=== PATIENT | male | born 1970 | race Caucasian/White ===

== ENCOUNTER 2016-12-05 01:08 | Day surgery (SDC) | payer MEDICARE, OTHER ==
[~2016-12-05] VITALS: Ht 177.8 cm; Wt 84.4 kg
[~2016-12-05 01:08] MED LIST: DILT240T10 PO; ERGO2000 PO; HYDR-3939 PO; LISI40TA PO; METO100T3 PO; OMEP20CA11 PO; PRAV40TA PO; RES30 PO; VIT1TABL83 PO; WARF2.5T82 PO; auryxia ORAL
[2016-12-05 14:02] VITALS: BP 117/64; PULSE 56; RESP 16; O2SAT 97
[2016-12-05 14:07] LABS: BASOPHILS % (AUTO) 0.6 % (0-3); EOSINOPHILS % (AUTO) 2.5 % (0-5); MONOCYTES % (AUTO) 14.3 % (4-12); Mean Corpuscular Hemoglobin 29.6 pg (27.0-35.0); Mean Corpuscular Volume 91.4 fL (81-100); NEUTROPHILS % (AUTO) 60.7 % (40-74); Platelet Count 243 bil/L (150-400)
[2016-12-05] MEDS ORDERED: Flumazenil 0.1 mg/mL 5 mL Inj IV ONE (14:12)
[2016-12-05] MEDS ORDERED: Methohexital 10 mg/mL 50 mL Inj ONE (14:12)
[2016-12-05] MEDS ORDERED: Atropine 1 mg/10 mL (Code) Syringe ONE (14:12)
[2016-12-05 14:23] LABS: INR 2.3 ratio
[2016-12-05] MEDS ORDERED: 0.9% Sodium Chloride 1,000 ML IV SCH (14:25)
[2016-12-05 14:37] VITALS: BP 137/84; PULSE 62; RESP 16; O2SAT 97
[2016-12-05 14:44] VITALS: BP 140/81; PULSE 73; RESP 16; O2SAT 97
[2016-12-05 14:49] VITALS: BP 139/79; PULSE 70; RESP 16; O2SAT 98
[2016-12-05 15:00] VITALS: BP 127/76; PULSE 72; RESP 16; O2SAT 99
[2016-12-05 15:09] VITALS: BP 128/85; PULSE 72; RESP 16; O2SAT 99
--- NOTE | 2016-12-05 15:20 | NUR ---
Pt discharged to home, ambulatory, accompanied by spouse. Pt's VSS, in NSR, IV discontinued. Pt given all discharge instructions and had no further questions at time of d/c.
--- NOTE | 2016-12-05 15:59 | PROCED ---
[address] [address] PROCEDURE NOTE PATIENT: JONA ESCALERA : 1970 MR#: [id number] ADMIT: 12/05/2016 JOB ID: [id number] DATE OF SERVICE: 12/05/2016 PREOPERATIVE DIAGNOSIS(ES): Atrial fibrillation. POSTOPERATIVE DIAGNOSIS(ES): Sinus rhythm. PROCEDURE PERFORMED: Direct current cardioversion. SURGEON: Joseph Jin MD. SEDATION: Versed 0.4 mg and multiple boluses of Brevital were utilized for sedation. Please see flow sheet for exact dosage. INDICATION: The patient is a pleasant 46-year-old gentleman with end-stage renal disease, on hemodialysis, who has symptomatic persistent atrial fibrillation. He has been appropriately anticoagulated with warfarin. After discussion of risks and benefits of cardioversion, he opted to proceed. PROCEDURAL DESCRIPTION: Following informed signed consent, the patient was taken to the procedure suite in a fasting state where defibrillator patches were placed in the anterior and posterior positions. After adequate sedation, a 200 joule biphasic synchronized shock was used to convert him to a sinus rhythm. He will be allowed to recover and discharged home for later followup. COMPLICATIONS: None. ESTIMATED BLOOD LOSS: None. IMPRESSION: Successful direct current cardioversion. PLAN: 1. Recovery and discharge from the [facility]. 2. Continue current medication regimen including diltiazem and metoprolol. The patient was intolerant of PROPAFENONE and cannot be on medications. 3. Follow up with me in clinic in 3-4 weeks to discuss ablation. ATTENDING STATEMENT: Joseph Jin MD, electrophysiology attending, was present for and supervised/performed all aspects of this procedure.
== END 2016-12-05 23:59 | disposition home or self-care (01) ==
LOC: SOUO 01:08
PROVIDERS: ATTEND Internal Medicine Cardiovascular Disease
DX: I48.1 Persistent atrial fibrillation (principal)

== ENCOUNTER 2016-12-22 16:24 | Emergency (ER) | payer MEDICARE, OTHER ==
[~2016-12-22] VITALS: Ht 170.2 cm; Wt 83.2 kg
[2016-12-22 16:35] VITALS: BP 124/77; PULSE 75; RESP 16; O2SAT 98
[2016-12-22 18:40] LABS: BASOPHILS % (AUTO) 0.6 % (0-3); EOSINOPHILS % (AUTO) 2.7 % (0-5); MONOCYTES % (AUTO) 13.6 % (4-12); Mean Corpuscular Hemoglobin 29.8 pg (27.0-35.0); Mean Corpuscular Volume 91.6 fL (81-100); Platelet Count 250 bil/L (150-400)
[2016-12-22 18:56] LABS: INR 1.69 ratio
--- NOTE | 2016-12-22 19:26 | ED.REPORT ---
HPI-Extremity Problem Upper Date of Service Dec 22, 2016 ED Provider: Sha Rosenberg History of Present Illness: 46yo male with L arm AV fistula for dialysis. He reports increase in size of anuerysm which occured yesterday. No bleeding. He went to dialysis today and was advised to have fistula site evaluated. He is on warfarin for A. fib. No pain or changes in neuro/circulation in L hand Nursing Notes Stated Complaint: PSEUDO ANEURYSM HAS INCREASED IN SIZE Chief Complaint: General Complaint Nursing Notes Reviewed: Yes Allergies: Coded Allergies: NSAIDS (Non-Steroidal Anti-Inflamma (Verified Allergy, Unknown, 12/22/16) Penicillins (Verified Allergy, Unknown, 12/22/16) Sulfa (Sulfonamide Antibiotics) (Verified Allergy, Unknown, 12/22/16) codeine (Verified Allergy, Unknown, 12/22/16) morphine (Verified Allergy, Unknown, 12/05/16) Scheduled ([auryxia]) 210 MG ORAL TID Diltiazem ER (Diltiazem ER) 240 Mg Tab.er.24h 240 MG PO DAILY Hydralazine (Hydralazine) 25 Mg Tablet 25 MG PO TID Lisinopril (Lisinopril) 40 Mg Tablet 40 MG PO DAILY Metoprolol Tartrate (Metoprolol Tartrate) 100 Mg Tablet 100 MG PO BID Omeprazole (Omeprazole) 20 Mg Capsule.dr 20 MG PO DAILY Pravastatin (Pravastatin) 40 Mg Tablet 40 MG PO DAILY Warfarin Sodium (Warfarin Sodium) 2.5 Mg Tablet 2.5 MG PO DAILY Scheduled PRN Temazepam (Temazepam) 30 Mg Cap 30 MG PO HS PRN PRN For Insomnia Miscellaneous Medications Ergocalciferol (Vitamin D2) (Vitamin D2) 2,000 Unit Tablet 2,000 UNIT PO Vit B Comp/C/FA/Iron/Vit E (Vitamin B Complex Tablet) 1 Each Tablet 1 EACH PO General Time Seen by MD: 17:50 Chief Complaint Other L arm AV fistula increased in size. Hx Obtained From: Patient Arrived By: Walk-in Onset Occurred: Yesterday Symptom Duration: Since onset Location: : Arm left Severity: Current: No pain currently Severity: Maximum: No pain Pertinent Negative: Pt denies other symptoms Pertinent Negative: Exacerbated by nothing Recent Healthcare: Recent doctor visit Similar Sx Previous: No Past Medical History Past Medical History ESRD, on dialysis Atrial Fib Past Surgical History L arm AV fistula 2013 Smoking History Former Smoker Ambulatory Status Independent Review of Systems Constitutional: Denies: Chills, Fever Musculoskeletal: Denies: Extremity pain Skin: Reports Swelling (at L arm AV fistula site) Neurologic: Denies: Numbness, Weakness Complete sys rev & neg: except as marked. Respiratory: Denies: Shortness of breath Cardiovascular: Denies: Chest pain GI: Denies: Abdominal pain Physical Exam Initial Vital Signs Vital Signs (First) Date Time Temp Pulse Resp B/P Pulse Ox O2 Delivery O2 Flow Rate FiO2 12/22/16 16:35 36.7 75 16 124/77 98 Room Air Initial VS: Vital signs normal General/Constitutional: Awake, Alert, No acute distress, Not toxic appearing Respiratory / Chest: Atraumatic, Breath sounds NL, Breath sounds = bilat, No respiratory distress Cardiovascular: Heart rate NL, Regular rhythm, Heart sounds NL A. fib not present, was cardioverted a few weeks ago per his report. Left Elbow: Positive: Swelling present... (Mild), Negative: Ecchymosis present, Erythema present, Neuro deficit present, Pulses distal absent, Pulses distal decreased, Warmth present Good thrill through AV fistula. Interpretation & Diagnostics Interpretation & Diagnostics: US shows interval increase in size of fistula from September, US. No pseudoaneurysm found. Lab Results Interpretation Result Diagram: 12/22/162 12/22/16 180 Test 12/22/16 18:02 White Blood Count 7.0th/mm3 (3.8-10.1) Red Blood Count 4.67mil/mm3 (4.40-5.80) Hemoglobin 13.9g/dL (13.8-17.2) Hematocrit 42.8% (41.0-50.0) Mean Corpuscular Volume 91.6fL (81-100) Mean Corpuscular Hemoglobin 29.8pg (27.0-35.0) Mean Corpuscular Hemoglobin Concent 32.5% (32.0-37.0) Red Cell Distribution Width 16.3% (12.3-15.4) Platelet Count 250bil/L (150-400) Neutrophils (%) (Auto) 60.0% (40-74) Lymphocytes (%) (Auto) 22.7% (14-46) Monocytes (%) (Auto) 13.6% (4-12) Eosinophils (%) (Auto) 2.7% (0-5) Basophils (%) (Auto) 0.6% (0-3) Prothrombin Time 18.3sec (8.1-12.5) Prothromb Time International Ratio 1.69ratio Sodium Level 136mEq/L (134-144) Potassium Level 4.1mEq/L (3.5-5.2) Chloride Level 90mEq/L (97-108) Carbon Dioxide Level 29mmol/L (18-29) Blood Urea Nitrogen 31mg/dL (6-24) Creatinine 4.81mg/dL (0.76-1.27) Estimat Glomerular Filtration Rate 14mL/min (>59) Glucose Level 117mg/dL (60-99) Calcium Level 9.2mg/dL (8.5-10.1) Hold Andrews Top Tube Received (Received) US Soft Tissue/Musculoskeletal PROCEDURE: US DUPLEX DOPPLER OF UNILATERAL ARM ARTERIES, LEFT INDICATIONS: eval L arm fistula for possible pseudoaneurysm formation TECHNIQUE: Color and pulse Doppler interrogation was performed of the left upper extremity arterial systems, with image documentation. Prior brachial uodcys-mb-owjkqfm vein fistula with reported swelling in the area of the arterial and venous fistula. COMPARISON: [facility], US, US DIALYSIS SHUNT DPLX, 10/10/2016, 12:46. FINDINGS: The brachial artery flow velocity is 329 centimeters per second and the fistulous communication to the proximal basilic vein has a neck diameter of 0.6 cm, with flow velocity of 252 cm/s. The basilic vein proximally near the fistula has a maximal diameter of 1.8 x 1.5 cm, and at the middle third has approximately a diameter of 1.4 x 1.3 cm and at the distal third has a diameter of 1.7 x 1.5 cm. This contrasts with the 10/06 ultrasound maximal diameter corresponding measurements of 1.0 cm, 0.9 cm, and 1.1 cm, respectively. No pseudoaneurysm is seen. IMPRESSION: No pseudoaneurysm is seen. Interval increase in caliber of the basilic vein portion of the brachial gfovbw-ou-kcspbrp vein arteriovenous shunt. Dictated by: Isra Diaz M.D. on 12/22/2016 at 20:36 Approved by: Isra Diaz M.D. on 12/22/2016 at 20:47 Re-Eval/Medical Decision Med Decision/Clinical Course Dr. So evaluated Pt. and advised General Surgery Consult. I spoke with Surgeon, , who advised US of fistula, if no alarming findings, he recommends f/u with Dr. Ever Torres next week. Counseled Regarding: Diagnosis, Lab results, Need for follow-up, When/why to return to ED Discharge & Departure Impression: Primary Impression: Complication of arteriovenous dialysis fistula Encounter type: initial encounter Qualified Code: T82.9XXA - Unspecified complication of cardiac and vascular prosthetic device, implant and graft, initial encounter Disposition: Home Additional Instructions: Follow up with Dr. Torres on Sunday, 12/25. Return to ER if anything worsens. Referrals: Dimitri Torres MD 2-3 days eval fistula EDSupervising Provider for APC: Deb So MD Attending Statement I spent [id number] time with this patient and agree with the assessment and disposition. Sha Rosenberg Dec 22, 2016 19:25 Deb So MD Dec 22, 2016 22:22
--- NOTE | 2016-12-22 20:49 | DRSVH ---
PROCEDURE: US DUPLEX DOPPLER OF UNILATERAL ARM ARTERIES, LEFT INDICATIONS: eval L arm fistula for possible pseudoaneurysm formation TECHNIQUE: Color and pulse Doppler interrogation was performed of the left upper extremity arterial systems, wit h image documentation. Prior brachial sojlsh-af-qcldfxk vein fistula with reported swelling in the ar ea of the arterial and venous fistula. COMPARISON: [facility], US, US DIALYSIS SHUNT DPLX, 10/10/2016, 12:46. FINDINGS: The brachial artery flow velocity is 329 centimeters per second and the fistulous communic ation to the proximal basilic vein has a neck diameter of 0.6 cm, with flow velocity of 252 cm/s. Th e basilic vein proximally near the fistula has a maximal diameter of 1.8 x 1.5 cm, and at the middle third has approximately a diameter of 1.4 x 1.3 cm and at the distal third has a diameter of 1.7 x 1. 5 cm. This contrasts with the 10/06 ultrasound maximal diameter corresponding measurements of 1.0 cm, 0.9 cm, and 1.1 cm, respectively. No pseudoaneurysm is seen. IMPRESSION: No pseudoaneurysm is seen. Interval increase in caliber of the basilic vein portion of the brachial tevqcz-yz-nxfhwfu vein arteriovenous shunt. Dictated by: Isra Diaz M.D. on 12/22/2016 at 20:36 Approved by: Isra Diaz M.D. on 12/22/2016 at 20:47
[2016-12-22 21:03] VITALS: BP 128/90; PULSE 81; RESP 16; O2SAT 98
== END 2016-12-22 21:05 | disposition home or self-care (01) ==
LOC: SED 16:24
DX: T82.9XXA Unspecified complication of cardiac and vascular prosthetic device, implant and graft, initial encounter (principal); Y71.2 Prosthetic and other implants, materials and accessory cardiovascular devices associated with adverse incidents; Y92.9 Unspecified place or not applicable; Y93.9 Activity, unspecified; Y99.9 Unspecified external cause status; I12.0 Hypertensive chronic kidney disease with stage 5 chronic kidney disease or end stage renal disease; N18.6 End stage renal disease; I48.91 Unspecified atrial fibrillation; Z99.2 Dependence on renal dialysis; Z87.891 Personal history of nicotine dependence

== ENCOUNTER 2016-12-31 11:10 | Inpatient (IN) | payer MEDICARE, OTHER ==
[2016-12-31] VITALS (8 sets, daily range): BP systolic 111–170; BP diastolic 68–104; PULSE 42–76; RESP 13–20; O2SAT 99–100
[~2016-12-31] VITALS: Ht 177.8 cm; Wt 88.8 kg
[2016-12-31] MEDS ORDERED: Atropine 1 mg/10 mL (Code) Syringe ONE (11:18)
--- NOTE | 2016-12-31 11:27 | ED.REPORT ---
HPI-Syncope Date of Service Dec 31, 2016 ED Provider: Jatin Dejesus MD The pt is 46 y/o male w/ a hx of A-fib and HTN presenting to the ED due to lightheadedness onset 1 hour ago while folding laundry. He also began feeling dizzy, sweaty, nauseas, and numbing in the hands. His reports him "nodding off" while driving. The pt took his metoprolol at 0800 this morning. He recently had a cardioversion from A-fib. Last Sunday he had a CT scan done w/ contrast, had dialysis for 2.5 hours, and Sunday had dialysis for 4 hours. His medications are as follows: Temazapamp 30mg Vitamin D 1.25 mg Hydralazine 25 mg 3x a day Pravastate 40mg Omeprazole 20mg Lisinopril 40mg B complex Metoprolol 100 mg twice a day Wrafarin 5mg Auryxia 220 mg Vitamin E 400 twice a day Diltiazem 240mg 1/day Nursing Notes Stated Complaint: LOW BLOOD PRESSURE,DIZZY Chief Complaint: Lightheadedness Nursing Notes Reviewed: Yes (Tier 1 Performance not reconciled: Warfarin, diltiazem , and metoprolol) Allergies: Coded Allergies: NSAIDS (Non-Steroidal Anti-Inflamma (Verified Allergy, Unknown, 12/22/16) Penicillins (Verified Allergy, Unknown, 12/22/16) Sulfa (Sulfonamide Antibiotics) (Verified Allergy, Unknown, 12/22/16) codeine (Verified Allergy, Unknown, 12/22/16) morphine (Verified Allergy, Unknown, 12/05/16) Scheduled ([auryxia]) 210 MG ORAL TID Diltiazem ER (Diltiazem ER) 240 Mg Tab.er.24h 240 MG PO DAILY Hydralazine (Hydralazine) 25 Mg Tablet 25 MG PO TID Lisinopril (Lisinopril) 40 Mg Tablet 40 MG PO DAILY Metoprolol Tartrate (Metoprolol Tartrate) 100 Mg Tablet 100 MG PO BID Omeprazole (Omeprazole) 20 Mg Capsule.dr 20 MG PO DAILY Pravastatin (Pravastatin) 40 Mg Tablet 40 MG PO DAILY Warfarin Sodium (Warfarin Sodium) 2.5 Mg Tablet 2.5 MG PO DAILY Scheduled PRN Temazepam (Temazepam) 30 Mg Cap 30 MG PO HS PRN PRN For Insomnia Miscellaneous Medications Ergocalciferol (Vitamin D2) (Vitamin D2) 2,000 Unit Tablet 2,000 UNIT PO Vit B Comp/C/FA/Iron/Vit E (Vitamin B Complex Tablet) 1 Each Tablet 1 EACH PO General Time Seen by Provider: 11:54 Chief Complaint Other (Lightheaded) Hx Obtained From: Patient Arrived By: Walk-in Onset Occurred: 1 - 4 hours ago Recent Healthcare: No recent hospitalization, Recent doctor visit Past Medical History Past Medical History Notes: 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 Jin Past Medical History ESRD, on dialysis Atrial Fib (s/p cardioversion x2) Past Surgical History L arm AV fistula 2012 Smoking History Former Smoker Ambulatory Status Independent Review of Systems GI: Reports: Nausea Skin: Reports Diaphoresis Neurologic: Reports: Dizziness, Lightheaded, Numbness (hands ) Complete sys rev & neg: except as marked. Physical Exam Initial Vital Signs Vital Signs (First) Date Time Temp Pulse Resp B/P Pulse Ox O2 Delivery O2 Flow Rate FiO2 12/31/16 11:15 36.3 42 13 111/86 100 Room Air Initial VS: Reviewed, Vital signs abnormal (severe bradycardia) General/Constitutional: Awake, Alert Globally weak Respiratory / Chest: Atraumatic, Breath sounds NL, Breath sounds = bilat, No respiratory distress, No rales, No rhonchi, No wheezing Cardiovascular: Regular rhythm, Heart sounds NL Heart Rate / Rhythm: Positive: Bradycardia (Profoundly ) No edema Lower Extremity / Pelvis / MS: Atraumatic, Full range of motion Neurologic: Oriented X3, Speech NL Mentating normally Head / Eyes: Atraumatic, Normocephalic ENT: Atraumatic, Airway patent Neck: Atraumatic, Supple, Full range of motion Abdomen: Atraumatic, Soft, Non-tender Back: Atraumatic, Full range of motion Skin: Atraumatic, Color NL, No rash, Warm, Dry Upper Extremity / MS: Full range of motion, No deformity Fistula L arm Interpretation & Diagnostics Lab Results Interpretation Result Diagram: 12/31/16 1117 12/31/16 1117 Test 12/31/16 11:17 White Blood Count 11.2th/mm3 (3.8-10.1) Red Blood Count 4.56mil/mm3 (4.40-5.80) Hemoglobin 13.6g/dL (13.8-17.2) Hematocrit 42.8% (41.0-50.0) Mean Corpuscular Volume 93.9fL (81-100) Mean Corpuscular Hemoglobin 29.8pg (27.0-35.0) Mean Corpuscular Hemoglobin Concent 31.8% (32.0-37.0) Red Cell Distribution Width 16.4% (12.3-15.4) Platelet Count 296bil/L (150-400) Neutrophils (%) (Auto) 60.5% (40-74) Lymphocytes (%) (Auto) 23.8% (14-46) Monocytes (%) (Auto) 11.8% (4-12) Eosinophils (%) (Auto) 2.9% (0-5) Basophils (%) (Auto) 0.6% (0-3) Prothrombin Time 15.5sec (8.1-12.5) Prothromb Time International Ratio 1.44ratio Sodium Level 134mEq/L (134-144) Potassium Level 5.8mEq/L (3.5-5.2) Chloride Level 93mEq/L (97-108) Carbon Dioxide Level 22mmol/L (18-29) Blood Urea Nitrogen 58mg/dL (6-24) Creatinine 8.25mg/dL (0.76-1.27) Estimat Glomerular Filtration Rate 8mL/min (>59) Glucose Level 125mg/dL (60-99) Calcium Level 9.4mg/dL (8.5-10.1) Phosphorus Level 5.0mg/dL (2.5-4.9) Magnesium Level 1.7mg/dL (1.6-2.6) Total Bilirubin 0.6mg/dL (0.0-1.2) Aspartate Amino Transf (AST/SGOT) 24U/L (0-50) Alanine Aminotransferase (ALT/SGPT) 24U/L (0-44) Alkaline Phosphatase 215U/L (25-150) Troponin T 0.031ug/L (0.0-0.011) Total Protein 8.5g/dL (6.4-8.4) Albumin 3.6g/dL (3.4-5.0) Hold Andrews Top Tube Received (Received) Lab Results Interpretation: CBC trace leukocytosis CMP mild hyperglycemia, chronic renal failure INR subtherapeutic ECG Interpretation ECG Interpretation: rate 44 sinus rhythm w/ pauses peaked t waves throughout concerning for hyperkalemia no widening of QRS T waves are distinctly more pronounced compared w/ an EKG of december 05 Interpreted by: ED physician X-Ray Chest Interpretation Chest Xray Interpretation: IMPRESSION: 1. Small left pleural effusion with probable left basilar atelectasis. 2. Cardiomegaly redemonstrated. Dictated by: Fred Marcial M.D. on 12/31/2016 at 11:36 Approved by: Fred Marcial M.D. on 12/31/2016 at 11:39 View: Portable, 1 view Re-Eval/Medical Decision Med Decision/Clinical Course This is a 46-year-old male with chronic renal failure has a history of paroxysmal atrial fibrillations required cardioversion 2 in recent months. He is anticoagulated on warfarin, but is also on metoprolol as well as diltiazem for rate control, and today developed dizziness and near syncope( actually reports that he had a few seconds of syncope several times when trying to get up ). He denies chest pain or shortness of breath. He has not missed any dialysis and in fact because he had a CT scan with contrast on Sunday had dialysis was and Sunday. His next dialysis is due tomorrow. He has had previous problems with hyperkalemia intermittently. He reports he feels fine laying flat and supine her the department. On the monitor he had significant bradycardia as low as the low 30s, but came back up without any intervention into the 40s and 50s. He is normotensive and mentating. He did not require atropine or electrical therapy in the department. He is in a sinus rhythm, but had significant pauses. He does have some mild peaked T waves initially concerning for hyperkalemia, but is occasionally marginally elevated at 5.8 and his chronic renal failure patient. I discussed this with the breakfast and room attendant, the patient received 15 g of Kayexalate. At this point this is a patient is having severe symptomatic bradycardia on both beta and calcium channel blockers. The plan is admission and hold those medications, and according to family is already discussion about an ablation procedures already as he was having some sort of difficulties as an outpatient. Cardiology is been consulted and agrees with holding his medications, and try and see if Dr. Jin can see him tomorrow. A procedure might be considered, so the patient's being maintained nothing by mouth. It turns out he is subtherapeutic on his INR so that is being held, rule out procedural intervention if required. The patient remained stable throughout the ED course , and is being admitted to the hospitalist service with consultations by nephrology and cardiology. Source of Hx: Old records Consultation #1: Referral / Consult Name: Alcon Torres MD Consulted With: Hospitalist Call Returned at: 12:23 Biological Technician: Will see patient, Agrees with eval, Agrees with plan, Accepts admit Consultation #2: Referral / Consult Name: Aston Amato MD Call Returned at: 12:54 Note: Dr. Jin will see pt tomorrow morning Consultation #3: Referral / Consult Name: Magen Carlson DO Call Returned at: 13:04 Note: Dr. Carlson agrees w/ holding drugs and recommends giving 15 grams Differential Diagnosis: Positive: Arrhythmia, Dysrhythmia, Electrolyte disorder , Negative: Abdominal aortic aneurysm, Acute coronary syndrome, Anemia, Cerebrovascular accident, Medication-induced, Palpitations, Pericarditis, Pneumothorax, Pulmonary embolus, Subarachnoid hemorrhage Counseled Regarding: Diagnosis, Lab results, Need for follow-up, Need for admission Discharge & Departure Impression: Primary Impression: Symptomatic bradycardia Additional Impressions: Chronic renal failure Chronic kidney disease stage: stage 5 Qualified Code: N18.5 - Chronic kidney disease, stage 5 Hyperkalemia Subtherapeutic international normalized ratio (INR) Disposition: ADMITTED TO HOSPITAL Discharge Condition All VS Reviewed: Yes Condition: Stable Referrals: NOPCP (PCP) [facility] [place] Attestation Portions of this note were transcribed by Parvez Wong. I, Dr. Dejesus personally performed the history, physical exam and medical decision-making; I reviewed and confirmed the accuracy of the information in the transcribed note. Signed by : Pedro Krueger, 12/31/16 and [id number]. copies to: [facility] Jatin Dejesus MD Dec 31, 2016 11:26 Parvez Wong Dec 31, 2016 12:59
[2016-12-31 11:28] LABS: BASOPHILS % (AUTO) 0.6 % (0-3); EOSINOPHILS % (AUTO) 2.9 % (0-5); MONOCYTES % (AUTO) 11.8 % (4-12); Mean Corpuscular Hemoglobin 29.8 pg (27.0-35.0); Mean Corpuscular Volume 93.9 fL (81-100); NEUTROPHILS % (AUTO) 60.5 % (40-74); Platelet Count 296 bil/L (150-400)
--- NOTE | 2016-12-31 11:30 | ABG ---
DateTimeAnalyzed 11:22:46 -_ pH ____7.445 - pCO2 ___38.8__ -mmHg pO2 ___37.5__ -mmHg HCO3- ___26.6__ -mmol/L 22.0 26.0 ABE ____2.4__ -mmol/L tHb ___13.4__ -g/dL O2Hb ___69.6__ -% COHb ____3.2__ -% 1.5 MetHb ____0.1__ -% sO2 ___71.9__ -% FIO2 ___21.0__ -% Drawn By as - Date/Time Notified____ 11:30:00 -_ Notified By ams - Notified Whom dr rikki - K+ ____5.9__ -mmol/L tO2 ___13.0__ -Vol% Alcon test N/A -
--- NOTE | 2016-12-31 11:46 | DRSVH ---
PROCEDURE: X-RAY CHEST ONE VIEW, PORTABLE ([id number]) INDICATIONS: cp TECHNIQUE: One view of the chest was acquired. COMPARISON: Outside Film, CT, CT CHEST HIGH RESOLUTION, 12/27/2016, 12:59. [facility], C R, XR CHEST 2VW, 10/10/2016, 13:36. FINDINGS: Surgical changes and devices: There are multiple overlying leads. Lungs and pleura: There is a small left pleural effusion with linear left basilar opacities likely re presenting compressive atelectasis. Mediastinum: Mediastinal contours appear prominent likely due to portable supine technique and low v olumes. Heart size is enlarged. Bones and chest wall: No suspicious bony lesions. Overlying soft tissues appear unremarkable. IMPRESSION: 1. Small left pleural effusion with probable left basilar atelectasis. 2. Cardiomegaly redemonstrated. Dictated by: Fred Marcial M.D. on 12/31/2016 at 11:36 Approved by: Fred Marcial M.D. on 12/31/2016 at 11:39
[2016-12-31 11:49] LABS: INR 1.44 ratio
[2016-12-31 11:58] LABS: TROPONIN T 0.031 ug/L (0.0-0.011)
[2016-12-31 12:09] LABS: Magnesium 1.7 mg/dL (1.6-2.6)
[2016-12-31] MEDS ORDERED: Ondansetron 2 mg/mL 2 mL Inj IVPUSH PRN ×2 (13:00→15:45)
[2016-12-31] MEDS ORDERED: Alum-Mag Hydrox-Simeth 30 mL Suspension PO PRN ×2 (13:00→15:45)
--- NOTE | 2016-12-31 14:20 | NUR ---
Admit Pt admitted to PCC room 2030. Pt arrived via wheelchair from the ED and transferred independently into hospital bed. Safe patient handoff report received from Moon DE OLIVEIRA. Pt is alert and oriented, in a pleasant mood, likes to make jokes, and is cooperating with all cares. Pt's at bedside. Pt will be NPO at midnight for possible cardiac procedure in the morning.
[2016-12-31] MEDS ORDERED: SILD20TA14 PO (14:28)
[2016-12-31] MEDS ORDERED: FERR210T PO (14:28)
[2016-12-31] MEDS ORDERED: CHOL500050 PO (15:39)
[2016-12-31] MEDS ORDERED: WARF5TAB7 PO ×2 (15:42)
[2016-12-31] MEDS ORDERED: ACET325T51 PO (15:43)
[2016-12-31] MEDS ORDERED: Polyethylene Glycol (PEG) 17 Gm Powder PO PRN (15:45)
[2016-12-31] MEDS ORDERED: VITA400C64 PO (16:01)
--- NOTE | 2016-12-31 16:13 | PCM.HPMED ---
Subjective Date of Service Dec 31, 2016 Primary Provider: Admitting Physician: Alcon Torres MD Primary Care Physician: Camelia Hassan Attending Physician: Alcon Torres MD Admit Status: From the Emergency Department, 23-Hour Observation, [facility] Telemetry Chief Complaint: Bradycardia and weakness History of Present Illness: This is a pleasant 46-year-old gentleman with a history of hypertension and end- stage renal disease who is hemodialysis dependent. He also has a history of paroxysmal atrial fibrillation. He has been cardioverted twice for this most recent episode 2 weeks ago. No recent medication changes. He is on metoprolol 100 mg twice a day and diltiazem 180 mg daily. The patient has had multiple episodes of feeling lightheaded over the last several days. Today she awoke and felt fairly normal but then became profoundly weak and near syncopal. No chest pain or palpitations. He checked his blood pressure and had a reading of 88 systolic. He also allows that his fistula to see what his pulse might be but could not really even see his pulse in the fistula which is unusual. He has bring him to the ER where he was found to be in a sinus bradycardia with rate of 44 and mildly hypotensive. The patient was dialyzed and Sunday and is due again tomorrow. He denies any chest pain, palpitations or shortness of breath. No recent medication changes. He also denies a recent cough or rhinorrhea. No orthopnea or pedal edema. No calf pain or swelling or hemoptysis. No pleuritic chest pain. Review of Systems: No fevers or chills except for feeling extremely hot this morning with his episode. He denies any difficulty with diarrhea or constipation or blood per rectum recently. No abdominal pain. All systems reviewed and otherwise negative except as noted in history of present illness Allergies Coded Allergies: Penicillins (Verified Allergy, Intermediate, Hives, 12/31/16) NSAIDS (Non-Steroidal Anti-Inflamma (Verified Allergy, Unknown, 12/22/16) Sulfa (Sulfonamide Antibiotics) (Verified Allergy, Unknown, 12/22/16) codeine (Verified Adverse Reaction, Severe, Nausea,Vomiting, 12/31/16) ""VIOLENT VOMITING" morphine (Verified Adverse Reaction, Severe, "HEART STOPS", 12/31/16) Home Medications Temazapamp 30mg Vitamin D 1.25 mg Hydralazine 25 mg 3x a day Pravastate 40mg Omeprazole 20mg Lisinopril 40mg B complex Metoprolol 100 mg twice a day Wrafarin 5mg Auryxia 220 mg Vitamin E 400 twice a day Diltiazem 240mg 1/day PMH End-stage renal disease, hemodialysis dependent Hypertension Paroxysmal atrial fibrillation Surgical History Peritoneal dialysis catheter removal Wrist fusion Repair of left ear trauma Family History A maternal aunt with hypertension and father with hypertension Social History Occupation: retired Hx Alcohol Use: No Hx Substance Use: No Smoking Status: Former Smoker Living Arrangement: with Family Exam Vital Signs Vital Sign - Last Date Time Temp Pulse Resp B/P Pulse Ox O2 Delivery O2 Flow Rate FiO2 12/31/16 14:45 66 12/31/16 14:19 36.8 20 164/96 100 Room Air Exam Oriented 3. No distress. Fluent speech. Normal affect. Normal skull. Normal nose and ears. Anicteric sclera, symmetric pupils Oropharynx is unremarkable, no facial droop. Neck is supple, normal thyroid. No adenopathy. Lungs are clear, normal effort rate. Heart is regular without murmur gallop or rub. Slightly bradycardic without murmur Abdomen soft, nondistended or tender. Extremities are free of pedal edema., Left arm fistula Good radial and pedal pulses. Skin is free of rash, lesions. No petechiae or ecchymosis. Joints are grossly normal. Cranial nerves are grossly normal. Motor strength is normal in all extremities. Normal muscular tone. Lab and Diagnostics Result Diagram: 12/31/16 1117 12/31/16 1117 12-lead ECG Sinus rhythm, bradycardic at 44, [place] 179, QRS of 100 QT L5 level with a QTC of 438. Peak T waves. Assessment & Plan 1. Sinus bradycardia, POA. This may relate to colitis but more likely his medications. For tonight we will keep him on telemetry and hold metoprolol and Cardizem. Also correct his mild hyperkalemia with Kayexalate 15 g 1. External pacemaker. Nothing by mouth after midnight. Cardiology was contacted and will see him in the morning. 2. Mild hyperkalemia, POA. Kayexalate 15 g by mouth 1, recheck electrolytes. Telemetry monitoring 3. Hypertension, POA. We will continue amlodipine 10 mg daily and follow clinically. 4. End-stage renal disease, hemodialysis dependent. POA. Serologies been contacted and he will dialyze tomorrow morning. Patient is for resuscitation He is admitted to observation status as his clear that he will need at least 1 night of medical observation. Pain Evaluation: Adequate Pain Control Resuscitation Status: CPR: Attempt Resuscitation Time spent 40 minutes Alcon Torres MD Dec 31, 2016 16:14
[2016-12-31] MEDS ORDERED: Heparin 5,000 Unit/mL Inj SUBQ SCH (16:30)
[2016-12-31] MEDS: Heparin 5,000 Unit/mL Inj SUBQ SCH (16:58)
[2017-01-01] MEDS: Heparin 5,000 Unit/mL Inj SUBQ SCH ×2 (00:30→08:30)
[2017-01-01 00:43] VITALS: BP 167/97; PULSE 83; RESP 16; O2SAT 99
[2017-01-01 03:48] VITALS: BP 160/93; PULSE 76; RESP 16; O2SAT 100
--- NOTE | 2017-01-01 06:13 | NUR ---
BP/HR/NPO/Critical Lab Value Pt's BP has remained high due to pt's PO HTN meds being on hold. Pt's HR has remained SR 80s. Pt has been NPO since midnight in case cardiology wants to take him in for a procedure. Pt did have a critical lab value: Creatinine 10.43. Pt is to receive dialysis today.
[2017-01-01 08:29] VITALS: BP 165/101; PULSE 86; RESP 16; O2SAT 98
[2017-01-01 08:53] VITALS: PULSE 86
--- NOTE | 2017-01-01 09:18 | NUR ---
Dialysis Patient a/o x 4, denies chest pain, nausea or sob. OOB amb in room and halls indep, steady gait. See vitals. Tele SR 80's. Patient down to dialysis this a.m. via bed.
[2017-01-01 09:36] VITALS: BP 183/116; PULSE 83
--- NOTE | 2017-01-01 12:09 | PCM.DIMED ---
Discharge Instructions Date of Service Jan 01, 2017 Dates of Hospitalization Dec 31, 2016 at 12:51 Discharge Diagnosis Discharge Diagnosis 1. Sinus bradycardia, improved. 2. Mild hyperkalemia, resolved. 3. Hypertension, stable. 4. End-stage renal disease, hemodialysis dependent. Stable. Diet Discharge Diet: Renal Diet Call your provider Call your provider for: Fever or Chills, Shortness of breath Patient Instructions Follow-up Provider: Joseph Jin MD Follow-up with PCP in: 2 weeks Alcon Torres MD Jan 01, 2017 12:09
[2017-01-01] MEDS ORDERED: METO25TA99 PO (12:10)
[2017-01-01 13:05] VITALS: PULSE 85
--- NOTE | 2017-01-01 13:44 | PCM.PNNEPH ---
Subjective Date of Service Jan 01, 2017 Subjective Patient is seen during dialysis. He is not bradycardic, HR 86/mins He has no chest pain or shortness of breath. Exam Vital Signs Vital Sign - Last Date Time Temp Pulse Resp B/P Pulse Ox O2 Delivery O2 Flow Rate FiO2 01/01/17 13:05 85 01/01/17 08:29 36.4 16 165/101 98 Room Air Intake and Output 12/31/16 12/31/16 01/01/17 Cumulative From/Thru 15:00 23:00 07:00 12/31/16 11:15 - 01/01/17 06:59 Intake Total 500 ml 350 ml 850 ml Output Total 0 ml 0 ml Balance 500 ml 350 ml 850 ml Intake Oral 500 ml 350 ml 850 ml Output Urine Total 0 ml 0 ml # Bowel Movements 2 2 Exam GENERAL: The patient in no apparent distress, and alert and oriented x3. VITAL SIGNS: as documented HEENT: Head is normocephalic and atraumatic. Extraocular muscles are intact. NECK: Supple, no elevation of JVD, No carotid bruits. No lymphadenopathy or thyromegaly. LUNGS: Clear to auscultation, equal breath sounds bilaterally, no wheezing, no rhonchi no rales. HEART: Normal S1/S2, Regular rate and rhythm, systolic murmur noted. ABDOMEN: Soft, nontender, and nondistended. Positive bowel sounds. No hepatosplenomegaly was noted. EXTREMITIES: Without any cyanosis, clubbing, rash, lesions or edema. AVF with good thrill and bruit. NEUROLOGIC: The patient is oriented to person, place and time. Strength and sensation are grossly intact. Lab and Diagnostics Result Diagram: 12/31/16 1117 01/01/17 0330 12-lead ECG Sinus rhythm, bradycardic at 44, [place] 179, QRS of 100 QT L5 level with a QTC of 438. Peak T waves. Plan Impression 1. End-stage renal disease on hemodialysis Hemodialysis Procedure Dialyzer: Revaclear Blood Flow Rate: 600 Dialysate Flow Rate: 400 Duration: 3.5 hr HD access: AVF K bath: 2K HCO3 bath: 35 Ultrafiltration: 2-3L as tolerated. 2. Sinus bradycardia secondary to beta omid and calcium omid. 3. Atrial fibrillation status post cardioversion 4. Hypertension with hypertensive nephrosclerosis Plan: For his blood pressure medication and recommend to resume lisinopril. Metoprolol and diltiazem have been on hold. May require to resume only metoprolol, awaiting cardiology recommendation. Next dialysis on Sunday. Shara Wang MD Jan 01, 2017 13:44
--- NOTE | 2017-01-01 13:48 | PCM.DC.MED ---
Discharge Summary Date of Service Jan 01, 2017 Dates of Hospitalization Date of Hospital Admission Dec 31, 2016 at 12:51 Date of Discharge: Jan 01, 2017 Providers: Admitting Physician: Isha Quick MD Primary Care Physician: Camelia Hassan Attending Physician: Isha Quick MD Diagnosis at Time of Discharge Diagnosis at Time of Discharge 1. Sinus bradycardia, improved. 2. Mild hyperkalemia, resolved. 3. Hypertension, stable. 4. End-stage renal disease, hemodialysis dependent. Stable. Consultations Nephrology, Procedures ECG 12 Lead Sinus rhythm, bradycardic at 44, [place] 179, QRS of 100 QT L5 level with a QTC of 438. Peak T waves. Brief History This is a pleasant 46-year-old gentleman with a history of hypertension and end- stage renal disease who is hemodialysis dependent. He also has a history of paroxysmal atrial fibrillation. He has been cardioverted twice for this most recent episode 2 weeks ago. No recent medication changes. He is on metoprolol 100 mg twice a day and diltiazem 180 mg daily. The patient has had multiple episodes of feeling lightheaded over the last several days. Today she awoke and felt fairly normal but then became profoundly weak and near syncopal. No chest pain or palpitations. He checked his blood pressure and had a reading of 88 systolic. He also allows that his fistula to see what his pulse might be but could not really even see his pulse in the fistula which is unusual. He has bring him to the ER where he was found to be in a sinus bradycardia with rate of 44 and mildly hypotensive. The patient was dialyzed and Sunday and is due again tomorrow. He denies any chest pain, palpitations or shortness of breath. No recent medication changes. He also denies a recent cough or rhinorrhea. No orthopnea or pedal edema. No calf pain or swelling or hemoptysis. No pleuritic chest pain. Hospital Course 1. Sinus bradycardia, POA. This may relate to colitis but more likely his medications. For tonight we will keep him on telemetry and hold metoprolol and Cardizem. Also correct his mild hyperkalemia with Kayexalate 15 g 1. External pacemaker. Nothing by mouth after midnight. He did well with resolution of bradycardia off his medications. He was discussed with Dr. Jin cardiology in the morning of discharge will be sent out on his baseline dose of diltiazem at a reduced dose metoprolol at 25 mg twice a day. He has a scheduled appointment with Dr. Pena in 2 weeks. He will keep this appointment. 2. Mild hyperkalemia, POA. Kayexalate 15 g by mouth 1, recheck electrolytes. Telemetry monitoring, this resolved with hemodialysis. 3. Hypertension, POA. We will continue amlodipine 10 mg daily and follow clinically. 4. End-stage renal disease, hemodialysis dependent. POA. He did well with hemodialysis on the day of discharge. Patient is for resuscitation He is admitted to observation status as his clear that he will need at least 1 night of medical observation. Exam Vital Signs (Last) Date Time Temp Pulse Resp B/P Pulse Ox O2 Delivery O2 Flow Rate FiO2 01/01/17 13:05 85 01/01/17 08:29 36.4 16 165/101 98 Room Air Exam Patient seen and examined on the day of discharge Test 12/31/16 11:17 01/01/17 03:30 White Blood Count 11.2th/mm3 (3.8-10.1) Red Blood Count 4.56mil/mm3 (4.40-5.80) Hemoglobin 13.6g/dL (13.8-17.2) Hematocrit 42.8% (41.0-50.0) Mean Corpuscular Volume 93.9fL (81-100) Mean Corpuscular Hemoglobin 29.8pg (27.0-35.0) Mean Corpuscular Hemoglobin Concent 31.8% (32.0-37.0) Red Cell Distribution Width 16.4% (12.3-15.4) Platelet Count 296bil/L (150-400) Neutrophils (%) (Auto) 60.5% (40-74) Lymphocytes (%) (Auto) 23.8% (14-46) Monocytes (%) (Auto) 11.8% (4-12) Eosinophils (%) (Auto) 2.9% (0-5) Basophils (%) (Auto) 0.6% (0-3) Prothrombin Time 15.5sec (8.1-12.5) Prothromb Time International Ratio 1.44ratio Phosphorus Level 5.0mg/dL (2.5-4.9) Magnesium Level 1.7mg/dL (1.6-2.6) Troponin T 0.031ug/L (0.0-0.011) Hold Andrews Top Tube Received (Received) Sodium Level 139mEq/L (134-144) Potassium Level 5.2mEq/L (3.5-5.2) Chloride Level 97mEq/L (97-108) Carbon Dioxide Level 23mmol/L (18-29) Blood Urea Nitrogen 73mg/dL (6-24) Creatinine 10.43mg/dL (0.76-1.27) Estimat Glomerular Filtration Rate 6mL/min (>59) Glucose Level 95mg/dL (60-99) Calcium Level 8.8mg/dL (8.5-10.1) Total Bilirubin 0.4mg/dL (0.0-1.2) Aspartate Amino Transf (AST/SGOT) 25U/L (0-50) Alanine Aminotransferase (ALT/SGPT) 22U/L (0-44) Alkaline Phosphatase 199U/L (25-150) Total Protein 8.0g/dL (6.4-8.4) Albumin 3.5g/dL (3.4-5.0) Discharge Medications Discharge Medications Cholecalciferol (Vitamin D3) (Vitamin D3) 50,000 Unit Capsule 50,000 UNIT PO WEEKLY (Reported) MONDAYS Diltiazem ER (Diltiazem ER) 240 Mg Tab.er.24h 240 MG PO QAM (Reported) Ferric Citrate (Ferric Citrate) 210 Mg Tablet 210 MG PO TIDWM (Reported) Hydralazine (Hydralazine) 25 Mg Tablet 25 MG PO TID (Reported) Lisinopril (Lisinopril) 40 Mg Tablet 40 MG PO QAM (Reported) Metoprolol Succinate ER (Metoprolol Succinate ER) 25 Mg Tab.er.24h 25 MG PO BID Prescribed by: ISHA QUICK MD Omeprazole (Omeprazole) 20 Mg Capsule.dr 20 MG PO QAM (Reported) Pravastatin (Pravastatin) 40 Mg Tablet 40 MG PO HS (Reported) Temazepam (Temazepam) 30 Mg Cap 30 MG PO HS (Reported) Vit B Comp/C/FA/Iron/Vit E (Vitamin B Complex Tablet) 1 Each Tablet 1 EACH PO QAM (Reported) Vitamin E Mixed (Vitamin E) 400 Unit Capsule 400 UNIT PO BID (Reported) Warfarin Sodium (Warfarin Sodium) 5 Mg Tablet 7.5 MG PO WEEKLY (Reported) 7.5 MG ON FRIDAYS AND 5 MG ALL OTHER DAYS Warfarin Sodium (Warfarin Sodium) 5 Mg Tablet 5 MG PO DAILY EXCEPT FRIDAYS ( Reported) 7.5 MG ON FRIDAYS AND 5 MG ALL OTHER DAYS As needed Acetaminophen (Acetaminophen) 325 Mg Tablet 650 MG PO Q4H PRN PRN For Headache ( Reported) Followup Plan Disposition: Home Discharge Diet: Renal Diet Follow-up Provider: Joseph Jin MD Follow-up with PCP in: 2 weeks Time spent 40 minutes Isha Quick MD Jan 01, 2017 13:48
--- NOTE | 2017-01-01 13:51 | NUR ---
Dialysis note: 4 hr tx, Net UF 3200. Left upper arm fistula, 15 g needles. Sharps used in buttonhole sites per pt. request. Pt ate breakfast and was stable throughout tx. Tylenol given for back of neck pain 01/29. Pt returned to floor stable. Please see DTR for complete record of VS.
--- NOTE | 2017-01-01 15:02 | NUR ---
Discharge note Patient returned from dialysis at 1430, awake, a/o x 4 denies pain or dizziness. Taking diet well. IV SL and tele discontinued. Patient given discharge instructions, mediation reconciliation, info on diagnosis, new prescriptions. All questions answered. Patient discharged home with and all belongings.
--- NOTE | 2017-01-01 16:27 | NUR ---
Social Work Note: Initial Assessment/Discharge Data& Assessment: EMR reviewed. SW met with pt and pt at bedside to discuss discharge plan and assess for any unmet needs. SW role explained. Per pt is medically improved and ready to discharge home. Jhonatan Chiang is a 46 year old male admitted on 12/31/2016 for symptomatic bradycardia. Per pt is medically improved and ready for discharge. Pt has Medicare, [place] [employer] insurance Pool Supplement insurance coverage. Pt sees EDY Garza. Pt lives in a in [place] with his spouse and is independent at baseline. Pt is a , , Sunday HD pt. PT is independent at baseline with no DME, no HH and no SNF hx. Pt to transport pt home today. Pt provided with DPOA/Advance Directive paperwork. Pt and pt deny any other needs. No other discharge needs identified. Plan: Per pt is medically ready to discharge home via POV. Pt and pt deny any other needs. No other discharge needs identified. SHERI Corona Addendum: 01/01/17 at 1633 by KEE PINTO Amended: Links added.
== END 2017-01-01 15:05 | disposition home or self-care (01) | DRG 308 ==
LOC: SED 11:10 → PCC 12:51
PROVIDERS: ADMIT Hospitalist; ATTEND Hospitalist
PROC: 4A033R1 Measurement of Arterial Saturation, Peripheral, Percutaneous Approach (ICD-10-PCS; 2016-12-31)
PROC: 5A1D00Z (ICD-10-PCS; principal; 2017-01-01)
DX: R00.1 Bradycardia, unspecified (principal); N18.6 End stage renal disease; I12.0 Hypertensive chronic kidney disease with stage 5 chronic kidney disease or end stage renal disease; E87.5 Hyperkalemia; I48.0 Paroxysmal atrial fibrillation; T44.5X5A Adverse effect of predominantly beta-adrenoreceptor agonists, initial encounter; Z99.2 Dependence on renal dialysis; Z87.891 Personal history of nicotine dependence; Z79.01 Long term (current) use of anticoagulants; Z82.49 Family history of ischemic heart disease and other diseases of the circulatory system; Z88.0 Allergy status to penicillin

== ENCOUNTER 2017-03-17 13:24 | Emergency (ER) | payer MEDICARE, OTHER ==
[~2017-03-17 13:24] MED LIST changes: +ACET325T51 PO; +CHOL500050 PO; -ERGO2000 PO; +FERR210T PO; -METO100T3 PO; +METO25TA99 PO; +VITA400C64 PO; -WARF2.5T82 PO; +WARF5TAB7 PO; -auryxia ORAL
[2017-03-17 13:26] VITALS: BP 167/93; PULSE 91; RESP 18; O2SAT 98
[2017-03-17 13:54] LABS: BASOPHILS % (AUTO) 0.6 % (0-3); EOSINOPHILS % (AUTO) 2.9 % (0-5); MONOCYTES % (AUTO) 11.3 % (4-12); Mean Corpuscular Hemoglobin 31.7 pg (27.0-35.0); Mean Corpuscular Volume 93.4 fL (81-100); NEUTROPHILS % (AUTO) 59.7 % (40-74); Platelet Count 176 bil/L (150-400)
[2017-03-17 14:12] VITALS: BP 151/87; PULSE 78; RESP 14; O2SAT 98
[2017-03-17 14:13] LABS: TROPONIN T 0.025 ug/L (0.0-0.011)
[2017-03-17 14:25] LABS: Magnesium 1.6 mg/dL (1.6-2.6)
--- NOTE | 2017-03-17 15:04 | DRSVH ---
PROCEDURE: X-RAY CHEST ONE VIEW, PORTABLE ([id number]) INDICATIONS: afib TECHNIQUE: One view of the chest was acquired. COMPARISON: [facility], CR, XR CHEST 1VW (PORTABLE), 12/31/2016, 11:15. FINDINGS: Surgical changes and devices: None. Lungs and pleura: Small left pleural effusion. There is mild perihilar infiltrates suggesting mild p almar edema. No pneumothorax. Mediastinum: Mediastinal contours appear normal. Heart size is mildly increased. Bones and chest wall: No suspicious bony lesions. Overlying soft tissues appear unremarkable. IMPRESSION: 1. Mild congestive heart failure. 2. Small left effusion. Dictated by: Rebecca Lai M.D. on 03/17/2017 at 15:02 Approved by: Rebecca Lai M.D. on 03/17/2017 at 15:03
[2017-03-17 15:55] LABS: INR 1.26 ratio
[2017-03-17 16:01] VITALS: BP 178/103; PULSE 78; RESP 11; O2SAT 99
--- NOTE | 2017-03-17 16:24 | ED.REPORT ---
HPI-General Illness Date of Service Mar 17, 2017 ED Provider: Ajit Carlisle MD A 46 year old male with a history of ESRD on dialysis, hypertension and paroxysmal atrial Fib (s/p cardioversion x2) on Warfarin presents to the ED following an episode of heart palpitations that occurred this afternoon. Upon examination, his symptoms have completely resolved. The patient reports that he was hammering a tea post into the ground during symptom onset. His palpitations were exacerbated by deep breath. The patient also recently obtained a contusion to his chest wall that has been mildly painful. Patient denies any associated chest pain, syncope, dizziness or shortness of breath. He has been going to dialysis as scheduled and taking Warfarin as directed. PT was last checked yesterday (7.5) and he is scheduled for another recheck in 2 weeks. Nursing Notes Stated Complaint: HEART FLUTTER Chief Complaint: Dysrhythmia/Cardiac Nursing Notes Reviewed: Yes Allergies: Coded Allergies: Penicillins (Verified Allergy, Intermediate, Hives, 03/17/17) NSAIDS (Non-Steroidal Anti-Inflamma (Verified Allergy, Unknown, 03/17/17) Sulfa (Sulfonamide Antibiotics) (Verified Allergy, Unknown, 03/17/17) codeine (Verified Adverse Reaction, Severe, Nausea,Vomiting, 03/17/17) ""VIOLENT VOMITING" morphine (Verified Adverse Reaction, Severe, "HEART STOPS", 03/17/17) Scheduled Cholecalciferol (Vitamin D3) (Vitamin D3) 50,000 Unit Capsule 50,000 UNIT PO WEEKLY MONDAYS Ferric Citrate (Ferric Citrate) 210 Mg Tablet 210 MG PO TIDWM Hydralazine (Hydralazine) 25 Mg Tablet 25 MG PO TID Lisinopril (Lisinopril) 40 Mg Tablet 40 MG PO QAM Metoprolol Succinate ER (Metoprolol Succinate ER) 25 Mg Tab.er.24h 25 MG PO BID Omeprazole (Omeprazole) 20 Mg Capsule.dr 20 MG PO QAM Pravastatin (Pravastatin) 40 Mg Tablet 40 MG PO HS Temazepam (Temazepam) 30 Mg Cap 30 MG PO HS Vit B Comp/C/FA/Iron/Vit E (Vitamin B Complex Tablet) 1 Each Tablet 1 EACH PO QAM Vitamin E Mixed (Vitamin E) 400 Unit Capsule 400 UNIT PO BID Warfarin Sodium (Warfarin Sodium) 5 Mg Tablet 7.5 MG PO WEEKLY 7.5 MG ON FRIDAYS AND 5 MG ALL OTHER DAYS Warfarin Sodium (Warfarin Sodium) 5 Mg Tablet 5 MG PO DAILY EXCEPT FRIDAYS 7.5 MG ON FRIDAYS AND 5 MG ALL OTHER DAYS Scheduled PRN Acetaminophen (Acetaminophen) 325 Mg Tablet 650 MG PO Q4H PRN PRN For Headache General Time Seen by MD: 15:09 Chief Complaint Other (Heart palpitations) Hx Obtained From: Patient Arrived By: Walk-in Sudden in Onset?: No Onset Occurred: 1 - 4 hours ago Symptom Duration: 1 - 15 minutes Associated with: Denies: Chest pain, Dizziness, Shortness of breath Pertinent Negative: Pt denies other symptoms Recent Healthcare: No recent hospitalization, Recent doctor visit Similar Sx Previous: Yes Past Medical History Past Medical History Notes: Sign Letterer: Dr. Winters Exhibition Designer: Dr. Jin PCP: Camelia SNOW Past Medical History ESRD, on dialysis paroxysmal atrial Fib (s/p cardioversion x2) Hypertension Past Surgical History L arm AV fistula 2012 Smoking History Former Smoker Social History Other Social History: Good social support, Local resident Ambulatory Status Independent Review of Systems Full Review of Systems Respiratory: Denies: Shortness of breath Cardiovascular: Reports: Palpitations, Denies: Chest pain Neurologic: Denies: Dizziness, Syncope Complete sys rev & neg: except as marked. Physical Exam Vital Signs Vital Signs Date Time Temp Pulse Resp B/P Pulse Ox O2 Delivery O2 Flow Rate FiO2 03/17/17 16:40 75 18 179/100 99 Room Air 03/17/17 16:01 78 11 178/103 99 Room Air 03/17/17 14:12 78 14 151/87 98 Room Air 03/17/17 13:26 37.2 91 18 167/93 98 Room Air Initial VS: Reviewed Head / Eyes: Atraumatic, Normocephalic, PERRL Neck: Supple, Non-tender, Full range of motion Extremities: Vascular intact, Neuro intact, No swelling, No tenderness Skin: Warm, Dry, No cyanosis Neurologic: Alert, Oriented, Nonfocal Psychiatric: Mood/affect normal, Behavior normal, Normal thought content General/Constitutional: Awake, Alert, No acute distress, Well appearing, Well developed Respiratory / Chest: Atraumatic, Breath sounds NL, Breath sounds = bilat, No respiratory distress Trauma - General: Positive: Hematoma (Chest wall hematoma ) Cardiovascular: Heart rate NL, Regular rhythm, No gallop, No rubs Heart Sounds / Murmur: Positive: Systolic murmur present.. (III/ Upper left sternal border) Abdomen: Atraumatic, Soft, Non-tender Interpretation & Diagnostics Lab Results Interpretation Result Diagram: 03/17/17 1335 03/17/17 1335 Test 03/17/17 13:35 White Blood Count 5.1th/mm3 (3.8-10.1) Red Blood Count 3.31mil/mm3 (4.40-5.80) Hemoglobin 10.5g/dL (13.8-17.2) Hematocrit 30.9% (41.0-50.0) Mean Corpuscular Volume 93.4fL (81-100) Mean Corpuscular Hemoglobin 31.7pg (27.0-35.0) Mean Corpuscular Hemoglobin Concent 34.0% (32.0-37.0) Red Cell Distribution Width 13.5% (12.3-15.4) Platelet Count 176bil/L (150-400) Neutrophils (%) (Auto) 59.7% (40-74) Lymphocytes (%) (Auto) 25.3% (14-46) Monocytes (%) (Auto) 11.3% (4-12) Eosinophils (%) (Auto) 2.9% (0-5) Basophils (%) (Auto) 0.6% (0-3) Prothrombin Time 13.5sec (8.1-12.5) Prothromb Time International Ratio 1.26ratio Sodium Level 137mEq/L (134-144) Potassium Level 3.4mEq/L (3.5-5.2) Chloride Level 92mEq/L (97-108) Carbon Dioxide Level 27mmol/L (18-29) Blood Urea Nitrogen 23mg/dL (6-24) Creatinine 6.42mg/dL (0.76-1.27) Estimat Glomerular Filtration Rate 10mL/min (>59) Glucose Level 127mg/dL (60-99) Calcium Level 8.6mg/dL (8.5-10.1) Magnesium Level 1.6mg/dL (1.6-2.6) Total Bilirubin 0.4mg/dL (0.0-1.2) Aspartate Amino Transf (AST/SGOT) 19U/L (0-50) Alanine Aminotransferase (ALT/SGPT) 14U/L (0-44) Alkaline Phosphatase 164U/L (25-150) Troponin T 0.025ug/L (0.0-0.011) Total Protein 7.6g/dL (6.4-8.4) Albumin 3.7g/dL (3.4-5.0) Hold Andrews Top Tube Received (Received) ECG Interpretation ECG Interpretation: Normal sinus rhythm Rate 81 bpm Borderline [place] interval Probable left atrial enlargement LVH Time: 15:02 Interpreted by: ED physician X-Ray Chest Interpretation Chest Xray Interpretation: IMPRESSION: 1. Mild congestive heart failure. 2. Small left effusion. Dictated by: Rebecca Lai M.D. on 03/17/2017 at 15:02 Interpretation / Wet Read by: Interpret - Radiologist Re-Eval/Medical Decision Time of Eval: 16:41 Patient Status: Condition improved Re-Evaluation/Progress Note: Symptoms have completely resolved and he is currently in sinus. Hypertension is addressed and pt reports that this is his baseline. He is informed of his current results and the intended treatment plan. All questions are addressed. He understands and agrees with the plan. Counseled Regarding: Diagnosis, Lab results, Need for follow-up, When/why to return to ED Discharge & Departure Primary Impression: Palpitations Additional Impression: Subtherapeutic international normalized ratio (INR) Disposition: Home Discharge Condition All VS Reviewed: Yes Condition: Improved Patient Instructions: Palpitations (ED) Additional Instructions: Thank you for entrusting us with your care today. Your emergency department evaluation today included interview, examination, lab work, EKG and chest X-ray. You are presently in a normal heart rhythm. INR ( protime) is low, so keep taking the increased dosage of warfarin as previously directed. BP noted to be high, continue with home meds and dialysis as scheduled. Please return to the emergency department for any new or worsening conditions including any chest pain, palpitations lasting more than a few minutes, shortness of breath, fevers, chills, persistent nausea, vomiting, lightheadedness, or dizziness. Referrals: Camelia Hassan (PCP) Scribe Attestation Portions of this note were transcribed by Tabby Mendez. I, Dr. Carlisle, personally performed the history, physical exam and medical decision-making; I reviewed and confirmed the accuracy of the information in the transcribed note. Signed by: Tabby Mendez, 03/17/17. copies to: Camelia Hassan Donald L MD Mar 17, 2017 16:24 TABBY MENDEZ Mar 17, 2017 16:30
[2017-03-17 16:40] VITALS: BP 179/100; PULSE 75; RESP 18; O2SAT 99
== END 2017-03-17 16:40 | disposition home or self-care (01) ==
LOC: SED 13:24
DX: R00.2 Palpitations (principal); R79.1 Abnormal coagulation profile; I12.0 Hypertensive chronic kidney disease with stage 5 chronic kidney disease or end stage renal disease; N18.6 End stage renal disease; I48.0 Paroxysmal atrial fibrillation; Z99.2 Dependence on renal dialysis; Z87.891 Personal history of nicotine dependence; Z79.01 Long term (current) use of anticoagulants; Z88.0 Allergy status to penicillin; Z88.2 Allergy status to sulfonamides; Z88.5 Allergy status to narcotic agent; Z88.8 Allergy status to other drugs, medicaments and biological substances

== ENCOUNTER 2017-04-12 06:26 | Inpatient (IN) | payer MEDICARE, OTHER ==
[2017-04-12] VITALS (13 sets, daily range): BP systolic 171–209; BP diastolic 98–139; PULSE 97–112; RESP 18–26; O2SAT 90–100
[~2017-04-12] VITALS: Ht 172.7 cm; Wt 84.0 kg
[~2017-04-12 06:26] MED LIST changes: -DILT240T10 PO; +METO-386 PO; -METO25TA99 PO
--- NOTE | 2017-04-12 06:29 | ED.REPORT ---
HPI-Dyspnea / Wheezing Date of Service Apr 12, 2017 ED Provider: Chas Marie Patient is a 46 year old male with a hx of afib, HTN, CHF, and ESRD who presents to the ED complaining of SOB upon waking this morning. Associated symptoms include dyspnea on exertion over the last week and productive cough with clear sputum. He saw his PCP 4 days ago and was given a Z-Sam. He denies chest pain, LE swelling, fevers, or any other symptoms. He has not taken his medications yet today. He was last dialyzed yesterday. He denies a hx COPD or asthma. Nursing Notes Stated Complaint: SOB Nursing Notes Reviewed: Yes Allergies: Coded Allergies: Penicillins (Verified Allergy, Intermediate, Hives, 04/12/17) NSAIDS (Non-Steroidal Anti-Inflamma (Verified Allergy, Unknown, 04/12/17) Sulfa (Sulfonamide Antibiotics) (Verified Allergy, Unknown, 04/12/17) codeine (Verified Adverse Reaction, Severe, Nausea,Vomiting, 04/12/17) ""VIOLENT VOMITING" morphine (Verified Adverse Reaction, Severe, "HEART STOPS", 04/12/17) Scheduled ([vitamin D2]) 1.2 MG PO Q week Cholecalciferol (Vitamin D3) (Vitamin D3) 50,000 Unit Capsule 50,000 UNIT PO WEEKLY FRIDAYS Ferric Citrate (Ferric Citrate) 210 Mg Tablet 420 MG PO TIDWM Hydralazine (Hydralazine) 25 Mg Tablet 25 MG PO BID Lisinopril (Lisinopril) 40 Mg Tablet 40 MG PO QAM Metoprolol Succinate ER (Metoprolol Succinate ER) 50 Mg Tab.er.24h 50 MG PO BID Omeprazole (Omeprazole) 20 Mg Capsule.dr 20 MG PO QAM Pravastatin (Pravastatin) 40 Mg Tablet 40 MG PO HS Spironolactone (Spironolactone) 25 Mg Tablet 25 MG PO BID Temazepam (Temazepam) 30 Mg Cap 30 MG PO HS Varenicline Tartrate (Chantix) 0.5 Mg Tablet 0.5 MG PO DAILY Vit B Comp/C/FA/Iron/Vit E (Vitamin B Complex Tablet) 1 Each Tablet 1 EACH PO QAM Vitamin E Mixed (Vitamin E) 400 Unit Capsule 400 UNIT PO DAILY Warfarin Sodium (Warfarin Sodium) 5 Mg Tablet 5 MG PO , , , [place]ak[place] 7.5 MG ON FRIDAYS AND 5 MG ALL OTHER DAYS Warfarin Sodium (Warfarin Sodium) 5 Mg Tablet 7.5 MG PO Sun 7.5 MG ON FRIDAYS AND 5 MG ALL OTHER DAYS Scheduled PRN Acetaminophen (Acetaminophen) 325 Mg Tablet 650 MG PO Q4H PRN PRN For Headache Hydrocodone-Acetaminophen 5-325 mg (Hydrocodone-Acetaminophen 5-325 mg) 1 Each Tablet 1 TABLET PO Q12 Hrs PRN PRN For Pain General Time Seen by MD: 06:32 Chief Complaint Shortness of breath Hx Obtained From: Patient, Spouse Arrived By: Walk-in Sudden in Onset?: Yes Onset Occurred: 1 - 4 hours ago Symptom Duration: Since onset Severity: Current: No pain currently Severity: Maximum: No pain Associated with: Reports: Cough Pertinent Negative: Pt denies other symptoms Recent Healthcare: Recent doctor visit Risk Factors Risk Notes: port score of 95/risk category 4 Past Medical History Past Medical History Notes: Label Drier: Dr. Winters Embedded Software Architect: Dr. Jin PCP: Camelia SNOW FULL CODE Past Medical History ESRD, on dialysis paroxysmal atrial Fib (s/p cardioversion x2) Hypertension CHF Past Surgical History L arm AV fistula 2013 L wrist x4 Smoking History Former Smoker Social History Other Social History: Good social support, Local resident Ambulatory Status Independent Review of Systems Constitutional: Denies: Fever Respiratory: Reports: Dyspnea on exertion, Prod cough, clear, Shortness of breath Cardiovascular: Denies: Chest pain, Edema Complete sys rev & neg: except as marked. Physical Exam Initial Vital Signs Vital Signs (First) Date Time Temp Pulse Resp B/P Pulse Ox O2 Delivery O2 Flow Rate FiO2 04/12/17 06:30 36.9 107 26 192/110 96 Room Air Initial VS: Reviewed, Vital signs abnormal Head / Eyes: Atraumatic, Normocephalic Skin: Warm, Dry Neurologic: Alert, Oriented, Nonfocal Psychiatric: Mood/affect normal, Behavior normal, Normal thought content General/Constitutional: Awake, Alert Distress / Hydration: Positive: Distress moderate Hypertensive Neck: Atraumatic, Full range of motion, No JVD Respiratory / Chest: Atraumatic Rales and wheezes presents tachypneic Cardiovascular: Heart sounds NL Heart Rate / Rhythm: Positive: Tachycardia Abdomen: Atraumatic, Soft, Non-tender Lower Extremity / Pelvis / MS: No edema Interpretation & Diagnostics Lab Results Interpretation Result Diagram: 04/12/17 0650 04/12/17 0650 Test 04/12/17 06:50 White Blood Count 9.6th/mm3 (3.8-10.1) Red Blood Count 3.42mil/mm3 (4.40-5.80) Hemoglobin 10.5g/dL (13.8-17.2) Hematocrit 31.4% (41.0-50.0) Mean Corpuscular Volume 91.8fL (81-100) Mean Corpuscular Hemoglobin 30.7pg (27.0-35.0) Mean Corpuscular Hemoglobin Concent 33.4% (32.0-37.0) Red Cell Distribution Width 13.4% (12.3-15.4) Platelet Count 290bil/L (150-400) Neutrophils (%) (Auto) 68.6% (40-74) Lymphocytes (%) (Auto) 12.8% (14-46) Monocytes (%) (Auto) 13.5% (4-12) Eosinophils (%) (Auto) 4.3% (0-5) Basophils (%) (Auto) 0.6% (0-3) Prothrombin Time 34.6sec (8.1-12.5) Prothromb Time International Ratio 3.16ratio Sodium Level 136mEq/L (134-144) Potassium Level 3.5mEq/L (3.5-5.2) Chloride Level 92mEq/L (97-108) Carbon Dioxide Level 26mmol/L (18-29) Blood Urea Nitrogen 26mg/dL (6-24) Creatinine 6.61mg/dL (0.76-1.27) Estimat Glomerular Filtration Rate 10mL/min (>59) Glucose Level 92mg/dL (60-99) Lactic Acid Level 1.1mmol/L (0.4-2.0) Calcium Level 8.5mg/dL (8.5-10.1) Magnesium Level 1.5mg/dL (1.6-2.6) Total Bilirubin 0.6mg/dL (0.0-1.2) Aspartate Amino Transf (AST/SGOT) 16U/L (0-50) Alanine Aminotransferase (ALT/SGPT) 9U/L (0-44) Alkaline Phosphatase 154U/L (25-150) Troponin T 0.055ug/L (0.0-0.011) Total Protein 7.6g/dL (6.4-8.4) Albumin 3.3g/dL (3.4-5.0) Procalcitonin 0.97ng/mL (0.00-0.08) ECG Interpretation ECG Interpretation: Sinus rate 99 LVH non-specific ST changes Time: 06:55 Interpreted by: ED physician X-Ray Chest Interpretation Chest Xray Interpretation: IMPRESSION: New finding of moderate right pleural effusion and possible right mid and lower lung pneumonia. Scant subpulmonic left effusion. Heart size at the upper limits of normal. Please correlate for presence or absence of cardiogenic pleural effusion versus infection. Neoplasm would be considered unlikely given the rapid development of this finding when compared to the 03/17/17 plain film. Dictated by: Isra Diaz M.D. on 04/12/2017 at 8:42 Approved by: Isra Diaz M.D. on 04/12/2017 at 8:45 View: Portable, 1 view Interpretation / Wet Read by: Interpret - Radiologist Re-Eval/Medical Decision Med Decision/Clinical Course Findings of pneumonia with parapneumonic effusion; given his comorbidities will plan to admit. Broad-spectrum antibiotics aimed at healthcare associated pneumonia initiated due to his ongoing dialysis. Re-Evaluation/Progress : Time of Eval: 08:53 Re-Evaluation/Progress Note: Rechecked pt. Discussed plan for admission. Patient understands and agrees with plan. All questions addressed at this time. Consultation : Referral / Consult Name: Jacqui Person MD Consulted With: Hospitalist Call Returned at: 09:09 Sheetmetal Trades Worker: Will see patient, Agrees with eval, Agrees with plan, Accepts admit Note: Discussed pt's case. Accepts admit. Counseled Regarding: Diagnosis, Lab results, Need for admission Discharge & Departure Impression: Primary Impression: Pneumonia Pneumonia type: due to unspecified organism Laterality: unspecified laterality Lung location: unspecified part of lung Qualified Code: J18.9 - Pneumonia, unspecified organism Additional Impressions: ESRD (end stage renal disease) CHF (congestive heart failure) Congestive heart failure type: unspecified congestive heart failure type Congestive heart failure chronicity: unspecified congestive heart failure chronicity Qualified Code: I50.9 - Heart failure, unspecified Disposition: ADMITTED TO HOSPITAL Discharge Condition All VS Reviewed: Yes Condition: Stable Referrals: Camelia Hassan (PCP) Pedro Attestation Portions of this note were transcribed by Chica Salzaar. I, Dr. Marie personally performed the history, physical exam and medical decision-making; I reviewed and confirmed the accuracy of the information in the transcribed note. Signed by: Pedro Michele, 04/12/17 copies to: Camelia Hassan Timothy S DO Apr 12, 2017 06:29 CHICA SALAZAR Apr 12, 2017 06:41
[2017-04-12] MEDS ORDERED: Albuterol 2.5 mg/3 mL Inhalation Solution NEB ONE ×2 (06:35→13:50)
[2017-04-12] MEDS ORDERED: MeTOProlol XL 50 mg ER24 Tablet PO ONE ×2 (06:40→07:30)
[2017-04-12] MEDS ORDERED: Lisinopril 40 Tablet PO ONE (06:40)
[2017-04-12 07:00] LABS: BASOPHILS % (AUTO) 0.6 % (0-3); EOSINOPHILS % (AUTO) 4.3 % (0-5); MONOCYTES % (AUTO) 13.5 % (4-12); Mean Corpuscular Hemoglobin 30.7 pg (27.0-35.0); Mean Corpuscular Volume 91.8 fL (81-100); NEUTROPHILS % (AUTO) 68.6 % (40-74); Platelet Count 290 bil/L (150-400)
[2017-04-12 07:13] LABS: INR 3.16 ratio
[2017-04-12 07:42] LABS: Magnesium 1.5 mg/dL (1.6-2.6)
[2017-04-12 07:51] LABS: TROPONIN T 0.055 ug/L (0.0-0.011)
--- NOTE | 2017-04-12 08:46 | DRSVH ---
PROCEDURE: X-RAY CHEST ONE VIEW, PORTABLE ([id number]) INDICATIONS: dyspnea TECHNIQUE: One view of the chest was acquired. COMPARISON: [facility], CR, XR CHEST 1VW (PORTABLE), 03/17/2017, 14:34. FINDINGS: Surgical changes and devices: None. Lungs and pleura: No pneumothorax. Lungs are clear. There is an unexpected finding of bilateral pl eural effusions, moderate on the right and minimal on the left, with compressive atelectasis and poss ible superimposed pneumonia as the right mid and lower lung Mediastinum: Mediastinal contours appear normal. Heart size is at the upper limits of normal. Bones and chest wall: No suspicious bony lesions. Overlying soft tissues appear unremarkable. IMPRESSION: New finding of moderate right pleural effusion and possible right mid and lower lung pneu monia. Scant subpulmonic left effusion. Heart size at the upper limits of normal. Please correlate for presence or absence of cardiogenic pleural effusion versus infection. Neoplasm would be conside red unlikely given the rapid development of this finding when compared to the 03/17/17 plain film. Dictated by: Isra Diaz M.D. on 04/12/2017 at 8:42 Approved by: Isra Diaz M.D. on 04/12/2017 at 8:45
[2017-04-12] MEDS ORDERED: levoFLOXacin Inj 750 MG in IV Premix 1 EACH IV ONE (08:50)
[2017-04-12] MEDS ORDERED: Meropenem Inj 1,000 MG in 0.9% Sodium Chloride 50 ML IV ONE (08:50)
[2017-04-12] MEDS ORDERED: Vancomycin Inj 1,250 MG in 0.9% Sodium Chloride 250 ML IV ONE (08:55)
[2017-04-12] MEDS ORDERED: Meropenem Inj 500 MG in 0.9% Sodium Chloride 50 ML IV ONE (09:00)
[2017-04-12] MEDS ORDERED: Ondansetron 2 mg/mL 2 mL Inj IVPUSH PRN ×2 (09:10→09:15)
[2017-04-12] MEDS ORDERED: vitamin D2 PO (09:12)
[2017-04-12] MEDS ORDERED: Alum-Mag Hydrox-Simeth 30 mL Suspension PO PRN (09:15)
[2017-04-12] MEDS ORDERED: FERR210T PO (09:20)
[2017-04-12] MEDS ORDERED: VITA400C64 PO (09:20)
[2017-04-12] MEDS ORDERED: METO-369 PO (09:20)
[2017-04-12] MEDS ORDERED: SILD20TA14 PO (09:23)
[2017-04-12] MEDS ORDERED: SPIR25TA3 PO (09:26)
[2017-04-12] MEDS ORDERED: HYDR-4003 PO (09:26)
[2017-04-12] MEDS ORDERED: VARE0.5T PO (09:27)
[2017-04-12] MEDS ORDERED: Magnesium Sulf 2 Gm/50mL Water 2 GM in IV Premix 1 EACH IV ONE (11:45)
[2017-04-12] MEDS ORDERED: _HYDROcodone/APAP 5-325 mg Tablet PO PRN (11:50)
[2017-04-12] MEDS: FERRIC CITRATE PO SCH ×2 (12:00→18:30)
[2017-04-12] MEDS ORDERED: HYDROcodone-APAP 5-325 mg Tablet PO PRN (12:05)
--- NOTE | 2017-04-12 12:32 | NUR ---
Admit Pt arrived on unit A&OX4. Arturoo running from ED. Pt denies any pain. L arm fistula thrill present. Pt is anuria and goes to dialysis MWF. BP 173/98 P 98, which pt stated is normal, MD aware. Ferric citrate is a non-formulary RX and home rx is being used.
[2017-04-12] MEDS ORDERED: 0.9% Sodium Chloride 100 ML ONE (12:59)
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
--- NOTE | 2017-04-12 14:04 | PCM.PHAPRO ---
Progress dyspnea, cough, sputum Indication: A.FIB Home Dose: 7.5 MOWEFR, 5MG AOD INR 3.16 GOAL INR: 2-3 Currently supertx, will hold and f/u tomorrow. Pharmacy will continue to follow daily. Thank you for consulting pharmacy in the care of this patient. Chet Watters Pharm.D Apr 12, 2017 14:04
[2017-04-12] MEDS ORDERED: MeTOProlol XL 50 mg ER24 Tablet PO SCH ×2 (18:32→20:30)
--- NOTE | 2017-04-12 19:23 | NUR ---
left unit Pt was found in front of hospital with security smoking a cigarette. Pt was returned to room, cigarettes were taken away, and pt was re-informed on rules of smoking and staying on unit. Cigarettes are in med drawer.
--- NOTE | 2017-04-12 19:25 | NUR ---
HTN Pts blood pressure was 207/118, reassessed 10 minutes later and BP was 178/115. Pt was asymptomatic and stated that anything in the 170s was good for him. MD notified. Verbal order to give HS hydralazine lopressor early and increase hydralazine from 25mg to 50mg. Will reassess BP.
[2017-04-12] MEDS: Albuterol 2.5 mg/3 mL Inhalation Solution NEB PRN (21:48)
[2017-04-13] VITALS (15 sets, daily range): BP systolic 171–224; BP diastolic 99–139; PULSE 92–108; RESP 16–22; O2SAT 92–99
[2017-04-13] MEDS ORDERED: Lisinopril 40 Tablet PO ONE (01:35)
[2017-04-13] MEDS: Albuterol 2.5 mg/3 mL Inhalation Solution NEB PRN ×4 (02:14→20:05)
[2017-04-13] MEDS ORDERED: DOXERCALCIFEROL IV SCH (06:30)
[2017-04-13] MEDS ORDERED: Pantoprazole 20 mg ER24 Tablet PO SCH (06:30)
[2017-04-13] MEDS ORDERED: levoFLOXacin Inj 500 MG in IV Premix 1 EACH IV SCH (06:35)
[2017-04-13] MEDS ORDERED: Lisinopril 40 Tablet PO SCH (06:35)
[2017-04-13] MEDS ORDERED: Multivit-Miner-Folic Acid-Iron Tablet PO SCH (06:37)
[2017-04-13] MEDS: FERRIC CITRATE PO SCH ×3 (06:38→17:29)
[2017-04-13 06:42] LABS: BASOPHILS % (AUTO) 0.5 % (0-3); MONOCYTES % (AUTO) 12.5 % (4-12); Mean Corpuscular Hemoglobin 30.9 pg (27.0-35.0); Mean Corpuscular Volume 92.7 fL (81-100); NEUTROPHILS % (AUTO) 69.1 % (40-74); Platelet Count 303 bil/L (150-400)
[2017-04-13 06:50] LABS: INR 2.95 ratio
[2017-04-13] MEDS: MeTOProlol XL 50 mg ER24 Tablet PO SCH ×2 (06:52→20:03)
[2017-04-13 07:09] LABS: Magnesium 2.1 mg/dL (1.6-2.6)
--- NOTE | 2017-04-13 07:24 | NUR ---
Hypertension/Tele/left unit BP 192/101 hr 98 and ordered Lisinopril 40mg;rechecked BP 191/116. MD notified and no new orders at that time. Manual BP 224/118 notified with the request of patient wanting all [id number] before going to dialysis. MD agreed to request and pt given morning meds with the exception of Levaquin and phosphate binder. Tele: SR hr 97 per cardiac monitor. Earlier in the shift patient left the unit for 30 minutes and was found in at the front service desk. Pt educated on risks and benefits of leaving the unit without notification. Pt apologetic and notified staff when he ambulated around the unit. Denies chest pain/pressure, n/v and abd pain. Care continues. Addendum: 04/13/17 at 0733 by VIANNEY HANSEN RN Pt has home medications in room and did not allow this RN to send them to pharmacy for safe keeping. Addendum: 04/13/17 at 0736 by VIANNEY HANSEN RN Pt did not take HS Temazepam and held onto them placing them on the table for "later." Pt educated on not saving medications and having the option to take the medication at a later time upon request.
[2017-04-13] MEDS ORDERED: levoFLOXacin Inj 750 MG in IV Premix 1 EACH IV SCH (08:30)
[2017-04-13] MEDS ORDERED: VARENICLINE TARTRATE PO SCH ×3 (08:30→20:30)
[2017-04-13] MEDS ORDERED: Vancomycin Dose per Pharmacist XX SCH (08:30)
--- NOTE | 2017-04-13 09:08 | PCM.PNMED ---
Subjective Date of Service Apr 13, 2017 Subjective pt was severely hypertensive to 220s even after lisinopril 40mg given, increased dose of hydralazine, remained asymptomatic, denied any complaints awaits dialysis today, slept okay without episode of hypoxia, PND, orthopnea pt c/o less cough, sputum, breathing better, not at baseline yet. Exam Vital Signs Vital Sign - Last Date Time Temp Pulse Resp B/P Pulse Ox O2 Delivery O2 Flow Rate FiO2 04/13/17 08:00 100 04/13/17 06:17 224/118 04/13/17 06:00 36.9 22 97 Room Air Intake and Output 04/12/17 04/12/17 04/13/17 Cumulative From/Thru 15:00 23:00 07:00 04/12/17 06:30 - 04/13/17 06:58 Intake Total 40 ml 310 ml 666 ml 1016 ml Output Total 0 ml 0 ml Balance 40 ml 310 ml 666 ml 1016 ml Intake Oral 666 ml 666 ml IV Total 40 ml 310 ml 350 ml Output Urine Total 0 ml 0 ml # Voids 0 0 # Bowel Movements 0 0 Exam NAD, comfortably laying down on the bed no JVD, MMM, no LAD RRR, nl s1, s2 no mrg Decreased breathing sound up to right mid lung field, fine crackles, no wheezing throughout S,ND,NT,normoactive BS+ warm, no edema, pulses 2/2 IVs and Medications Medications Reviewed: Medications were reviewed in detail Lab and Diagnostics Result Diagram: 04/13/1746 04/13/1746 Assessment & Plan 46-year-old male with ESRD on dialysis presumably due to hypertensive nephropathy, paroxysmal A. fib, uncontrolled hypertension presenting with 4 days of difficulty breathing, cough, sputum. Acute, active Progressive worsening dyspnea, productive cough, POA, hx and CXR suggestive of pneumonia, with possible possible parapneumonic effusion, Labs shows normal white count but mildly elevated PCY. viral PCR neg. s/p vancomycin, meropenem in ED -Infectious w/u ngtd; MRSA swab, resp PCR, sputum cx -continue Levaquin qd -O2 supplement as needed, target SpO2>95% pleural effusion R>L, POA, presumably parapneumic, will consider thoracentesis if clinically worse with abx uncontrolled HTN, POA, BP very resistant to 220s, at baseline 170-180s per pt. -resumed all of the home blood pressure medications, increased hydralazine to 100 tid today, [id number] bid. Chronic, stable hx of afib, currently sinus, monitor on telemetry, held Coumadin for possible thoracentesis ESRD on HD, appreciate renal service, HD as scheduled MWF, daily wt, avoid renal toxins. renally adjust meds, finish process for KT outpt. dispo:likely tomorrow home, if clinically remains stable diet: Renal diet dvt ppx: SCD Full code VTE Mechanical Devices: Intermittant Pneumatic CD Time spent 35min Jacqui Person MD Apr 13, 2017 09:08 Jacqui Person MD Apr 13, 2017 09:08
--- NOTE | 2017-04-13 09:30 | NUR ---
Off unit Pt was trf to [facility] [place] for dialysis. Morning hypertensive RX given by noc shift early d/t patient elevated BP. Pt was asymptomatic at time of transfer
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
--- NOTE | 2017-04-13 14:45 | NUR ---
Dialysis note: 4 hrs tx 3000 ml net UF Left upper arm fistula, accessed w/ no problems Pls see DTR for VS details Qb 450 Heparin given O2 @ 2L via NC on during tx Tolerated treatment Fistula needle sites clotted w/in 10 min Stable condition at end of tx Report given to Suzanne DE OLIVEIRA
--- NOTE | 2017-04-13 16:16 | NUR ---
Social Work: Initial Assessment / Multidisciplinary Rounds Data: See initial assessment. Patient is a 46 year old male who was admitted on 04/12/17 for pneumonia, ESRD and CHF per H&P. Patient's insurance is Medicare and [facility] Insurance [employer]. Patient's PCP is EDY Garza. EMR reviewed. SW met with patient to discuss discharge planning. SW role explained. Patient states that he lives at home with his in [place]. Patient considers his to be his main source of support. Patient confirms that his is his DPOA and that AD have been completed on his behalf. Patient confirms that he is I at baseline and is able to perform all of his ADLs and care needs. Patient confirms that he does drive via POV. Patient states that he transports himself to and from his dialysis visits. Patient states that he receives dialysis at [facility] and has a schedule of Sunday, Sunday, and Sunday. Patient denies having a hx of home health services or SNF. Patient denies having [facility] care insurance or [place] benefits. Upon discharge, patient states that his will assist with transporting him home. Patient was discussed in morning rounds. No concerns were noted by staff or MD. SW provided patient with a discharge planning checklist booklet and encouraged him to call with any questions or concerns. Phone number provided. SW will continue to follow. Assessment: Patient will likely discharge home when medically stable. Plan: Patient will likely discharge home when medically stable. Transportation will be provided by his . No needs are anticipated at this time. SW will continue to follow. SHERI Bangura Addendum: 04/13/17 at 1629 by LASHAY PINTO Amended: Links added.
--- NOTE | 2017-04-13 18:42 | NUR ---
Hypertension Pt has been hypertensive all shift. MD aware. No medications ordered. Last BP 217/117. Pt has been asymptomatic and stated "anything in the 170s is low and that he DR Carlson and Singh have been trying for months to figure out a med combo to lower his BP.
[2017-04-13] MEDS ORDERED: Ergocalciferol (Vit D2) 50,000 Unit Capsule PO SCH (21:00)
--- NOTE | 2017-04-13 21:35 | NUR ---
tele: at start of shift apprx 193 pt refused tele, and removed it himself. teletype operator notified. night hospitalist notified. Addendum: 04/14/17 at 0558 by LISHA BOSWELL RN off unit: pt ambulated off unit X2 this shift, after being informed of hospital policy, and being asked to stay on the unit. Security notified and pt back to room.
[2017-04-14] MEDS: Albuterol 2.5 mg/3 mL Inhalation Solution NEB PRN ×2 (00:13→04:36)
[2017-04-14 00:14] VITALS: PULSE 98; RESP 18; O2SAT 95
[2017-04-14 04:37] VITALS: PULSE 89; RESP 18; O2SAT 95
[2017-04-14 04:53] VITALS: BP 223/139; PULSE 92; RESP 20; O2SAT 95
[2017-04-14] MEDS: MeTOProlol XL 50 mg ER24 Tablet PO SCH (05:18)
[2017-04-14 06:12] LABS: BASOPHILS % (AUTO) 0.5 % (0-3); EOSINOPHILS % (AUTO) 6.3 % (0-5); MONOCYTES % (AUTO) 13.9 % (4-12); Mean Corpuscular Hemoglobin 30.8 pg (27.0-35.0); Mean Corpuscular Volume 93.7 fL (81-100); NEUTROPHILS % (AUTO) 62.5 % (40-74); Platelet Count 336 bil/L (150-400)
[2017-04-14 06:14] LABS: INR 1.81 ratio
[2017-04-14 06:43] VITALS: BP 192/121
--- NOTE | 2017-04-14 07:23 | NUR ---
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 Pt is known to wander, per shift report, and refused tele earlier. Belongings are still in room, but pt still has PIV in, security was called regarding matter-they indicated that [employer] needs to be called. This RN called [employer], requesting pt be brought back to remove IV, nursing felt finishing supervisor informed, primary RN informed, and physician informed. Belongings from room packed into patient belonging bags and labeled. Addendum: 04/14/17 at 0739 by DENISE MARTIN RN 07:38-left message for , Violeta, to call hospital (pt's DPOA)
--- NOTE | 2017-04-14 14:50 | PCM.DC.MED ---
Discharge Summary Date of Service Apr 14, 2017 Dates of Hospitalization Date of Hospital Admission Apr 12, 2017 at 09:31 Date of Discharge: Apr 14, 2017 Providers: Admitting Physician: Jacqui Person MD Primary Care Physician: Camelia Hassan Attending Physician: Jacqui Person MD Diagnosis at Time of Discharge Diagnosis at Time of Discharge Acute dx probable community acquired pneumonia with right-sided pleural effusion uncontrolled HTN Chronic dx hx of afib, ESRD on HD, hypertensive nephropathy Consultations Nephrology Procedures XRay, CTs & MRIs PROCEDURE: X-RAY CHEST ONE VIEW, PORTABLE ([id number]) INDICATIONS: dyspnea TECHNIQUE: One view of the chest was acquired. COMPARISON: [facility], CR, XR CHEST 1VW (PORTABLE), 03/17/2017, 14: 34. FINDINGS: Surgical changes and devices: None. Lungs and pleura: No pneumothorax. Lungs are clear. There is an unexpected finding of bilateral pleural effusions, moderate on the right and minimal on the left, with compressive atelectasis and possible superimposed pneumonia as the right mid and lower lung Mediastinum: Mediastinal contours appear normal. Heart size is at the upper limits of normal. Bones and chest wall: No suspicious bony lesions. Overlying soft tissues appear unremarkable. IMPRESSION: New finding of moderate right pleural effusion and possible right mid and lower lung pneumonia. Scant subpulmonic left effusion. Heart size at the upper limits of normal. Please correlate for presence or absence of cardiogenic pleural effusion versus infection. Neoplasm would be considered unlikely given the rapid development of this finding when compared to the plain film. Dictated by: Isra Diaz M.D. on 04/12/2017 at 8:42 Approved by: Isra Diaz M.D. on 04/12/2017 at 8:45 Brief History History of present illness was obtained on April 12 46-year-old male with ESRD on dialysis presumably due to hypertensive nephropathy, paroxysmal A. fib, uncontrolled hypertension presenting with 4 days of difficulty breathing, cough, sputum. pt was USOH until 4days ago, woke up with cough, didn't see any sick contact at his work or dialysis center. cough was gradually worse with white sputum, pt also started noticing more SOB especially when moves. pt check temp, but denied any fever, chills, myalgia, athralgia. Last night, pt also woke up multiple times as he felt severely short of breath, gasping for air, decided to come in. he noticed that after he got sick, his colleague at work also developed similar sx. pt didn't get flu shot yet. pt has been compliant to his dialysis, measuring weight, watch over hit diet. denied any more leg swelling or diet chg recenty. BP has been uncontrolled for long time, recently medicine was changed by . from labetalol 300mg tid to metoprolol XR, 100mg bid, started yesterday, BP usued to 170s but noticed better to low 100s with metoprolol. pt denied sore throat, runny nose, any recent travel. pt is scheduled for MRCP as the last step for kidney transplant. ROS: Patient denied fever, chills, chest pain, nausea, vomiting, abdominal pain , sore throat, runny nose, patient is anuric, patient developed some right lower back pain patient thinks it is related to his persistent cough. Hospital Course 46-year-old male with ESRD on dialysis presumably due to hypertensive nephropathy, paroxysmal A. fib, uncontrolled hypertension presenting with 4 days of difficulty breathing, cough, sputum. Patient was treated for possible pneumonia initially with vancomycin and meropenem, downgraded to Levaquin. Symptoms are greatly improved with antibiotics. Patient did not require any O2 supplement during hospitalization, infectious workups including MRSA swab, respiratory PCR, sputum culture all came back negative. Patient received additional fluid removal from dialysis given uncontrolled hypertension, even after increasing hydralazine 200 mg 3 times a day, esomeprazole 40 mg twice a day. BP was markedly uncontrolled up to 220s. Patient remained asymptomatic. Plan was to receive another dialysis session on , adjusting medication for blood pressure by however patient left AGAINST MEDICAL ADVICE prior to dialysis session scheduled in the morning. Given concern for new onset right sided pleural effusion, possibly parapneumonic, plan was also wait and see whether this is causing symptoms or any hypoxic episodes. Thoracentesis was unable to perform given patient's elevated INR from Coumadin. Acute, active Progressive worsening dyspnea, productive cough, POA, hx and CXR suggestive of pneumonia, with possible possible parapneumonic effusion, Labs shows normal white count but mildly elevated PCY. viral PCR neg. s/p vancomycin, meropenem in ED -Infectious w/u ngtd; MRSA swab, resp PCR, sputum cx -continue Levaquin qd -O2 supplement as needed, target SpO2>95% pleural effusion R>L, POA, presumably parapneumic, will consider thoracentesis if clinically worse with abx uncontrolled HTN, POA, BP very resistant to 220s, at baseline 170-180s per pt. -resumed all of the home blood pressure medications, increased hydralazine to 100 tid today, [id number] bid. Chronic, stable hx of afib, currently sinus, monitor on telemetry, held Coumadin for possible thoracentesis ESRD on HD, appreciate renal service, HD as scheduled MWF, daily wt, avoid renal toxins. renally adjust meds, finish process for KT outpt. dispo:likely tomorrow home, if clinically remains stable diet: Renal diet dvt ppx: SCD Full code Exam Vital Signs (Last) Date Time Temp Pulse Resp B/P Pulse Ox O2 Delivery O2 Flow Rate FiO2 04/14/17 06:43 192/121 04/14/17 04:53 36.9 92 20 95 Room Air 04/13/17 12:12 3.00 Exam Patient left the hospital AGAINST MEDICAL ADVICE Test 04/12/17 06:50 04/13/17 05:46 04/14/17 05:35 Lactic Acid Level 1.1mmol/L (0.4-2.0) Troponin T 0.055ug/L (0.0-0.011) Magnesium Level 2.1mg/dL (1.6-2.6) White Blood Count 9.9th/mm3 (3.8-10.1) Red Blood Count 3.31mil/mm3 (4.40-5.80) Hemoglobin 10.2g/dL (13.8-17.2) Hematocrit 31.0% (41.0-50.0) Mean Corpuscular Volume 93.7fL (81-100) Mean Corpuscular Hemoglobin 30.8pg (27.0-35.0) Mean Corpuscular Hemoglobin Concent 32.9% (32.0-37.0) Red Cell Distribution Width 13.4% (12.3-15.4) Platelet Count 336bil/L (150-400) Neutrophils (%) (Auto) 62.5% (40-74) Lymphocytes (%) (Auto) 16.3% (14-46) Monocytes (%) (Auto) 13.9% (4-12) Eosinophils (%) (Auto) 6.3% (0-5) Basophils (%) (Auto) 0.5% (0-3) Prothrombin Time 19.6sec (8.1-12.5) Prothromb Time International Ratio 1.81ratio Sodium Level 142mEq/L (134-144) Potassium Level 4.2mEq/L (3.5-5.2) Chloride Level 98mEq/L (97-108) Carbon Dioxide Level 30mmol/L (18-29) Blood Urea Nitrogen 33mg/dL (6-24) Creatinine 5.98mg/dL (0.76-1.27) Estimat Glomerular Filtration Rate 11mL/min (>59) Glucose Level 94mg/dL (60-99) Calcium Level 9.1mg/dL (8.5-10.1) Total Bilirubin 0.6mg/dL (0.0-1.2) Aspartate Amino Transf (AST/SGOT) 24U/L (0-50) Alanine Aminotransferase (ALT/SGPT) 15U/L (0-44) Alkaline Phosphatase 195U/L (25-150) Total Protein 7.6g/dL (6.4-8.4) Albumin 3.7g/dL (3.4-5.0) Procalcitonin 0.89ng/mL (0.00-0.08) Discharge Medications Discharge Medications ([vitamin D2]) 1.2 MG PO Q week (Reported) Cholecalciferol (Vitamin D3) (Vitamin D3) 50,000 Unit Capsule 50,000 UNIT PO WEEKLY (Reported) FRIDAYS Ferric Citrate (Ferric Citrate) 210 Mg Tablet 420 MG PO TIDWM (Reported) Hydralazine (Hydralazine) 25 Mg Tablet 25 MG PO BID (Reported) Lisinopril (Lisinopril) 40 Mg Tablet 40 MG PO QAM (Reported) Metoprolol Succinate ER (Metoprolol Succinate ER) 50 Mg Tab.er.24h 50 MG PO BID (Reported) Omeprazole (Omeprazole) 20 Mg Capsule.dr 20 MG PO QAM (Reported) Pravastatin (Pravastatin) 40 Mg Tablet 40 MG PO HS (Reported) Spironolactone (Spironolactone) 25 Mg Tablet 25 MG PO BID (Reported) Temazepam (Temazepam) 30 Mg Cap 30 MG PO HS (Reported) Varenicline Tartrate (Chantix) 0.5 Mg Tablet 0.5 MG PO DAILY (Reported) Vit B Comp/C/FA/Iron/Vit E (Vitamin B Complex Tablet) 1 Each Tablet 1 EACH PO QAM (Reported) Vitamin E Mixed (Vitamin E) 400 Unit Capsule 400 UNIT PO DAILY (Reported) Warfarin Sodium (Warfarin Sodium) 5 Mg Tablet 5 MG PO , , , (Reported) 7.5 MG ON FRIDAYS AND 5 MG ALL OTHER DAYS Warfarin Sodium (Warfarin Sodium) 5 Mg Tablet 7.5 MG PO , Sun, Sun (Reported) 7.5 MG ON FRIDAYS AND 5 MG ALL OTHER DAYS As needed Acetaminophen (Acetaminophen) 325 Mg Tablet 650 MG PO Q4H PRN PRN For Headache ( Reported) Hydrocodone-Acetaminophen 5-325 mg (Hydrocodone-Acetaminophen 5-325 mg) 1 Each Tablet 1 TABLET PO Q12 Hrs PRN PRN For Pain (Reported) Followup Plan Disposition: AMA Time spent 65min Jacqui Person MD Apr 14, 2017 14:50
[2017-04-15 15:51] LABS: APPEARANCE,URINE HAZY (CLEAR,HAZY); COLOR,URINE YELLOW (YELLOW); OCCULT BLOOD,URINE LARGE (NEGATIVE); UROBILINOGEN,URINE NORMAL (NORMAL)
[2017-04-19] MEDS ORDERED: Darbepoetin Alfa (ESRD) 40 mCg/0.4 mL Inj SUBQ SCH (08:30)
== END 2017-04-14 07:30 | disposition left against medical advice (07) | DRG 193 ==
LOC: SED 06:26 → MPC 09:31
PROVIDERS: ADMIT Internal Medicine; ATTEND Internal Medicine
PROC: 5A1D00Z (ICD-10-PCS; principal; 2017-04-13)
DX: J18.9 Pneumonia, unspecified organism (principal); N18.6 End stage renal disease; J91.8 Pleural effusion in other conditions classified elsewhere; I13.11 Hypertensive heart and chronic kidney disease without heart failure, with stage 5 chronic kidney disease, or end stage renal disease; I48.0 Paroxysmal atrial fibrillation; Z88.0 Allergy status to penicillin; Z79.01 Long term (current) use of anticoagulants; Z87.891 Personal history of nicotine dependence; Z91.15 Patient's noncompliance with renal dialysis

== ENCOUNTER 2017-04-15 12:15 | Inpatient (IN) | payer MEDICARE, OTHER ==
[2017-04-15] VITALS (9 sets, daily range): BP systolic 195–208; BP diastolic 113–130; PULSE 92–102; RESP 18–31; O2SAT 94–100
[~2017-04-15] VITALS: Ht 172.7 cm; Wt 83.0 kg
[~2017-04-15 12:15] MED LIST changes: +HYDR-4003 PO; +METO-369 PO; -METO-386 PO; +SPIR25TA3 PO; +VARE0.5T PO; +vitamin D2 PO
--- NOTE | 2017-04-15 12:38 | ED.REPORT ---
HPI-Abd Pain F 2 and Over Date of Service Apr 15, 2017 ED Provider: Jatin Dejesus MD Nursing Notes Stated Complaint: CHEST PAIN/SOB Chief Complaint: Respiratory Distress Nursing Notes Reviewed: Yes ([employer], [employer] not reconciled, EMR indicates warfarin use) Allergies: Coded Allergies: Penicillins (Verified Allergy, Intermediate, Hives, 04/15/17) NSAIDS (Non-Steroidal Anti-Inflamma (Verified Allergy, Unknown, 04/15/17) Sulfa (Sulfonamide Antibiotics) (Verified Allergy, Unknown, 04/15/17) codeine (Verified Adverse Reaction, Severe, Nausea,Vomiting, 04/15/17) ""VIOLENT VOMITING" morphine (Verified Adverse Reaction, Severe, "HEART STOPS", 04/15/17) Scheduled ([vitamin D2]) 1.2 MG PO Q week Cholecalciferol (Vitamin D3) (Vitamin D3) 50,000 Unit Capsule 50,000 UNIT PO WEEKLY FRIDAYS Ferric Citrate (Ferric Citrate) 210 Mg Tablet 420 MG PO TIDWM Hydralazine (Hydralazine) 25 Mg Tablet 25 MG PO BID Lisinopril (Lisinopril) 40 Mg Tablet 40 MG PO QAM Metoprolol Succinate ER (Metoprolol Succinate ER) 50 Mg Tab.er.24h 50 MG PO BID Omeprazole (Omeprazole) 20 Mg Capsule.dr 20 MG PO QAM Pravastatin (Pravastatin) 40 Mg Tablet 40 MG PO HS Spironolactone (Spironolactone) 25 Mg Tablet 25 MG PO BID Temazepam (Temazepam) 30 Mg Cap 30 MG PO HS Varenicline Tartrate (Chantix) 0.5 Mg Tablet 0.5 MG PO DAILY Vit B Comp/C/FA/Iron/Vit E (Vitamin B Complex Tablet) 1 Each Tablet 1 EACH PO QAM Vitamin E Mixed (Vitamin E) 400 Unit Capsule 400 UNIT PO DAILY Warfarin Sodium (Warfarin Sodium) 5 Mg Tablet 5 MG PO , , , 7.5 MG ON FRIDAYS AND 5 MG ALL OTHER DAYS Warfarin Sodium (Warfarin Sodium) 5 Mg Tablet 7.5 MG PO , Sun, Sun 7.5 MG ON FRIDAYS AND 5 MG ALL OTHER DAYS Scheduled PRN Acetaminophen (Acetaminophen) 325 Mg Tablet 650 MG PO Q4H PRN PRN For Headache Hydrocodone-Acetaminophen 5-325 mg (Hydrocodone-Acetaminophen 5-325 mg) 1 Each Tablet 1 TABLET PO Q12 Hrs PRN PRN For Pain General Time Seen by MD: 12:32 Chief Complaint Other (Shortness of breath ) Hx Obtained from: Patient Arrived by: Walk-in Sudden in Onset?: Yes Symptom Duration: Since onset Quality: Painful Severity: Current: Mild Severity: Maximum: Moderate Context: Immunization Status General: All up to date Similar Sx Previous: Yes Past Medical History Past Medical History 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 Jin PCP: Camelia SNOW FULL CODE Smoking History Former Smoker Review of Systems Constitutional: Denies: Chills, Fever Respiratory: Reports: Shortness of breath, Denies: Irregular breathing, Wheezing Cardiovascular: Reports: Chest pain, Denies: Syncope GI: Denies: Abdominal pain, Diarrhea, Nausea, Vomiting Musculoskeletal: Denies: Neck pain Complete sys rev & neg: except as marked. Physical Exam Initial Vital Signs Vital Signs (First) Date Time Temp Pulse Resp B/P Pulse Ox O2 Delivery O2 Flow Rate FiO2 04/15/17 12:22 36.7 92 28 195/117 94 Room Air Initial VS: Reviewed, Vital signs abnormal Head / Eyes: Atraumatic, Normocephalic, PERRL Neck: Supple, Non-tender, Full range of motion Skin: Warm, Dry, No cyanosis Neurologic: Alert, Oriented, Nonfocal General / Constitutional: Awake, Alert Respiratory / Chest: Atraumatic, Breath sounds NL, Breath sounds = bilat Cardiovascular: Heart rate NL, Regular rhythm, Heart sounds NL Abdomen: Atraumatic, Soft, Non-tender Back: Atraumatic, Inspection NL, No CVA tenderness Re-Eval/Medical Decision Source of Hx: Old records Counseled Regarding: Diagnosis, Lab results, Need for admission Discharge & Departure Disposition: ADMITTED TO HOSPITAL Referrals: Camelia Hassan (PCP) Jatin Dejesus MD Apr 15, 2017 12:37 JOHN AVERY Apr 15, 2017 12:51 Discharge & Departure Referrals: Camelia Hassan (PCP) Jatin Dejesus MD Apr 15, 2017 12:37 JOHN AVERY Apr 15, 2017 12:51
--- NOTE | 2017-04-15 12:54 | ED.REPORT ---
HPI-Dyspnea / Wheezing Date of Service Apr 15, 2017 ED Provider: Jatin Dejesus MD Pt is a 46 year old male with a hx of recent dx with pneumonia and pleural effusion increased SOB while waiting for pleural effusion to be drained. He reports that he left the hospital AMA yesterday because he was feeling improved , and his RV was going to be towed. Pt states that he came back today because he was feeling like his breathing is becoming more labored. He states that he last had dialysis yesterday. He admits to chest pain and shortness of breath and chest pain, and is noticing that his blood pressure has been elevated, which he attributes to the fluid retention. He denies any fevers, swelling in his lower extremities, or any other symptoms He reports that he is no longer taking his Warfarin. Nursing Notes Stated Complaint: CHEST PAIN/SOB Chief Complaint: Respiratory Distress Nursing Notes Reviewed: Yes ([employer], [employer] not reconciled - on Coumadin) Allergies: Coded Allergies: Penicillins (Verified Allergy, Intermediate, Hives, 04/15/17) NSAIDS (Non-Steroidal Anti-Inflamma (Verified Allergy, Unknown, 04/15/17) Sulfa (Sulfonamide Antibiotics) (Verified Allergy, Unknown, 04/15/17) codeine (Verified Adverse Reaction, Severe, Nausea,Vomiting, 04/15/17) ""VIOLENT VOMITING" morphine (Verified Adverse Reaction, Severe, "HEART STOPS", 04/15/17) Scheduled ([vitamin D2]) 1.2 MG PO Q week Cholecalciferol (Vitamin D3) (Vitamin D3) 50,000 Unit Capsule 50,000 UNIT PO WEEKLY FRIDAYS Ferric Citrate (Ferric Citrate) 210 Mg Tablet 420 MG PO TIDWM Hydralazine (Hydralazine) 25 Mg Tablet 25 MG PO BID Lisinopril (Lisinopril) 40 Mg Tablet 40 MG PO QAM Metoprolol Succinate ER (Metoprolol Succinate ER) 50 Mg Tab.er.24h 50 MG PO BID Omeprazole (Omeprazole) 20 Mg Capsule.dr 20 MG PO QAM Pravastatin (Pravastatin) 40 Mg Tablet 40 MG PO HS Spironolactone (Spironolactone) 25 Mg Tablet 25 MG PO BID Temazepam (Temazepam) 30 Mg Cap 30 MG PO HS Varenicline Tartrate (Chantix) 0.5 Mg Tablet 0.5 MG PO DAILY Vit B Comp/C/FA/Iron/Vit E (Vitamin B Complex Tablet) 1 Each Tablet 1 EACH PO QAM Vitamin E Mixed (Vitamin E) 400 Unit Capsule 400 UNIT PO DAILY Warfarin Sodium (Warfarin Sodium) 5 Mg Tablet 5 MG PO , , , 7.5 MG ON FRIDAYS AND 5 MG ALL OTHER DAYS Warfarin Sodium (Warfarin Sodium) 5 Mg Tablet 7.5 MG PO , Sun, Sun 7.5 MG ON FRIDAYS AND 5 MG ALL OTHER DAYS Scheduled PRN Acetaminophen (Acetaminophen) 325 Mg Tablet 650 MG PO Q4H PRN PRN For Headache Hydrocodone-Acetaminophen 5-325 mg (Hydrocodone-Acetaminophen 5-325 mg) 1 Each Tablet 1 TABLET PO Q12 Hrs PRN PRN For Pain General Time Seen by MD: 12:32 Chief Complaint Chest pain, Shortness of breath Hx Obtained From: Spouse Arrived By: Walk-in Sudden in Onset?: No Onset Occurred: More than a week ago... 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 Jin PCP: Camelia SNOW FULL CODE Pt LEFT AMA yesterday Past Medical History ESRD, on dialysis paroxysmal atrial Fib (s/p cardioversion x2) Hypertension CHF Past Surgical History L arm AV fistula 2013 L wrist x4 Smoking History Former Smoker Social History Other Social History: Good social support, Local resident Ambulatory Status Independent Review of Systems Constitutional: Denies: Chills, Fever, Malaise, Weakness - generalized Respiratory: Reports: Shortness of breath, Denies: Non-productive cough, Wheezing Cardiovascular: Reports: Chest pain, Denies: Syncope Musculoskeletal: Denies: Back pain, Extremity pain, Neck pain Skin: Denies Diaphoresis, Denies Rash Complete sys rev & neg: except as marked. Physical Exam Initial Vital Signs Vital Signs (First) Date Time Temp Pulse Resp B/P Pulse Ox O2 Delivery O2 Flow Rate FiO2 04/15/17 12:22 36.7 92 28 195/117 94 Room Air 04/15/17 13:00 2 Initial VS: Reviewed, Vital signs abnormal Head / Eyes: Atraumatic, Normocephalic, PERRL ENT: Mucous membranes moist, Conjunctiva normal, No scleral icterus Abdomen / GI: Soft, Non-tender, No guarding, No rebound, No distention Skin: Warm, Dry, No cyanosis Neurologic: Alert, Oriented, Nonfocal Psychiatric: Mood/affect normal, Behavior normal, Normal thought content General/Constitutional: Awake, Alert, No acute distress, Well appearing, Cooperative Neck: Atraumatic, Supple, Full range of motion, No adenopathy Respiratory / Chest: Atraumatic, Breath sounds NL Diminished Breath Sounds: Positive: Decreased R Tachypnic Dyspnic Cardiovascular: Heart rate NL, Regular rhythm, Heart sounds NL Interpretation & Diagnostics Lab Results Interpretation Result Diagram: 04/15/17 1300 04/15/17 1300 Test 04/15/17 13:00 White Blood Count 11.9th/mm3 (3.8-10.1) Red Blood Count 3.41mil/mm3 (4.40-5.80) Hemoglobin 10.6g/dL (13.8-17.2) Hematocrit 31.2% (41.0-50.0) Mean Corpuscular Volume 91.5fL (81-100) Mean Corpuscular Hemoglobin 31.1pg (27.0-35.0) Mean Corpuscular Hemoglobin Concent 34.0% (32.0-37.0) Red Cell Distribution Width 13.8% (12.3-15.4) Platelet Count 388bil/L (150-400) Neutrophils (%) (Auto) 71.9% (40-74) Lymphocytes (%) (Auto) 12.9% (14-46) Monocytes (%) (Auto) 9.1% (4-12) Eosinophils (%) (Auto) 5.2% (0-5) Basophils (%) (Auto) 0.6% (0-3) Prothrombin Time 24.5sec (8.1-12.5) Prothromb Time International Ratio 2.25ratio Sodium Level 139mEq/L (134-144) Potassium Level 4.5mEq/L (3.5-5.2) Chloride Level 93mEq/L (97-108) Carbon Dioxide Level 26mmol/L (18-29) Blood Urea Nitrogen 58mg/dL (6-24) Creatinine 9.37mg/dL (0.76-1.27) Estimat Glomerular Filtration Rate 6mL/min (>59) Glucose Level 90mg/dL (60-99) Calcium Level 9.0mg/dL (8.5-10.1) Total Bilirubin 0.5mg/dL (0.0-1.2) Aspartate Amino Transf (AST/SGOT) 19U/L (0-50) Alanine Aminotransferase (ALT/SGPT) 12U/L (0-44) Alkaline Phosphatase 187U/L (25-150) Total Protein 8.1g/dL (6.4-8.4) Albumin 3.5g/dL (3.4-5.0) Lab Results Interpretation: CBC positive leukocytosis CMP chronic renal failure Note cultures to date from recent admission still negative X-Ray Chest Interpretation Chest Xray Interpretation: IMPRESSION: Unchanged appearance of bilateral pleural effusions with likely superimposed atelectasis. Dictated by: Orquidea Miranda M.D. on 04/15/2017 at 13:29 Interpretation / Wet Read by: Interpret - Radiologist Re-Eval/Medical Decision Med Decision/Clinical Course This is a 46-year-old male who was admitted with shortness of breath and a right pleural effusion thought to possibly be infectious 2 days ago, left AMA yesterday. He returns today requesting readmission, reports he is not doing well. He claims a left simple because he is losing his RV spot and have his RV towed in this where he lives. Fever, but reports increasing shortness of breath , denies cough. He was dialyzed yesterday. He arrives quite tachypneic, and remains severely hypertensive as well. He has decreased breath sounds on the right side. No JVD or signs of heart failure, no overt signs of venous thrombi embolism. He reports he's not had any warfarin since yesterday. He as he left AMA had not had any antibiotics since yesterday either, and supposed been Levaquin. Chest x-ray reveals old persistent right pleural effusion, blood reveals leukocytosis, his cultures from his initial presentation remain negative to date. He is being readmitted, case discussed with the hospitalist and sludge filtration operator. Warfarin will be held-and given his need for thoracentesis, consideration to reversal should be given. The patient's been admitted by the hospitalist service and wrote initial transition orders, patient's gone upstairs and I have not had a chance to write for any antibodies while in the department hasI had a critically ill trauma patient arrived at this stage. Source of Hx: Old records Re-Evaluation/Progress : Time of Eval: 14:10 Re-Evaluation/Progress Note: Pt is rechecked and informed of his imaging and lab results and the plan to admit him at this time. He understands and agrees, all questions are addressed. Consultation : Consulted With: Nephrology Steam Tank Operator: Will see patient Note: Discussed w/Dr. Carlson Differential Diagnosis: Positive: Pneumonia, Respiratory insufficiency, Negative: COPD exacerbation, Foreign body airway, Pneumothorax, Pulmonary embolism Counseled Regarding: Diagnosis, Lab results, Need for admission Discharge & Departure Impression: Primary Impression: Pleural effusion Additional Impressions: Anticoagulated by anticoagulation treatment Pneumonia Pneumonia type: due to unspecified organism Laterality: right Lung location : unspecified part of lung Qualified Code: J18.9 - Pneumonia, unspecified organism Chronic renal failure Chronic kidney disease stage: unspecified stage Qualified Code: N18.9 - Chronic kidney disease, unspecified Disposition: ADMITTED TO HOSPITAL Discharge Condition All VS Reviewed: Yes Condition: Stable Referrals: Camelia Hassan (PCP) Pedro Attestation Portions of this note were transcribed by Ann Marie Dutta. I, Dr. Dejesus personally performed the history, physical exam and medical decision-making; I reviewed and confirmed the accuracy of the information in the transcribed note. Signed by: Pedro Martines, 04/15/2017 1440 copies to: Camelia Hassan Matthew F MD Apr 15, 2017 12:54 JOHN DUTTA Apr 15, 2017 12:59
[2017-04-15] MEDS ORDERED: levoFLOXacin Inj 750 MG in IV Premix 1 EACH IV ONE (13:10)
[2017-04-15 13:19] LABS: BASOPHILS % (AUTO) 0.6 % (0-3); EOSINOPHILS % (AUTO) 5.2 % (0-5); MONOCYTES % (AUTO) 9.1 % (4-12); Mean Corpuscular Hemoglobin 31.1 pg (27.0-35.0); Mean Corpuscular Volume 91.5 fL (81-100); NEUTROPHILS % (AUTO) 71.9 % (40-74); Platelet Count 388 bil/L (150-400)
--- NOTE | 2017-04-15 13:32 | DRSVH ---
PROCEDURE: X-RAY CHEST ONE VIEW, PORTABLE ([id number]) INDICATIONS: SHORTNESS OF BREATH TECHNIQUE: One view of the chest was acquired. COMPARISON: [facility], CR, XR CHEST 1VW (PORTABLE), 04/12/2017, 6:54. FINDINGS: Surgical changes and devices: None. Lungs and pleura: Unchanged appearance of mild left and moderate right pleural effusion with likely s uperimposed atelectasis. Mediastinum: Mediastinal contours appear normal. Heart size is normal. Bones and chest wall: No suspicious bony lesions. Overlying soft tissues appear unremarkable. IMPRESSION: Unchanged appearance of bilateral pleural effusions with likely superimposed atelectasis. Dictated by: Orquidea Miranda M.D. on 04/15/2017 at 13:29 Approved by: Orquidea Miranda M.D. on 04/15/2017 at 13:30
[2017-04-15 13:38] LABS: INR 2.25 ratio
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
[2017-04-15] MEDS ORDERED: VITAMIN D2 PO SCH (14:10)
[2017-04-15] MEDS ORDERED: Non-Formulary Medication (Vit B Comp/C/FA/Iron/Vit E (Vitamin B Complex Tablet) 1 EACH) PO SCH (14:10)
[2017-04-15] MEDS ORDERED: _HYDROcodone/APAP 5-325 mg Tablet PO PRN (14:10)
[2017-04-15] MEDS ORDERED: Phytonadione (Adult) 10 mg/1 mL Inj PO ONE (14:30)
[2017-04-15] MEDS ORDERED: DOXERCALCIFEROL IV SCH (14:31)
[2017-04-15] MEDS: HYDROcodone-APAP 5-325 mg Tablet PO PRN ×2 (14:48→19:26)
[2017-04-15] MEDS: Pantoprazole 20 mg ER24 Tablet PO SCH (14:48)
[2017-04-15] MEDS: Albuterol 2.5 mg/3 mL Inhalation Solution NEB PRN ×2 (15:10→19:27)
--- NOTE | 2017-04-15 16:59 | NUR ---
[facility] Pt arrived to room at approximately 1418 by wheelchair to room 2000. Pt able to transfer to bed. Beginning assessment and VS at this time. Care continues.
[2017-04-15] MEDS ORDERED: FERRIC CITRATE 420 MG PO SCH (17:30)
[2017-04-15] MEDS: FERRIC CITRATE PO SCH (17:30)
[2017-04-15] MEDS: Lisinopril 40 Tablet PO SCH (19:25)
[2017-04-15] MEDS: MeTOProlol XL 50 mg ER24 Tablet PO SCH (19:36)
[2017-04-15] MEDS: VARENICLINE TARTRATE PO SCH (19:53)
[2017-04-15] MEDS ORDERED: Non-Formulary Medication (Pravastatin 40 MG) PO SCH (21:00)
[2017-04-16] VITALS (11 sets, daily range): BP systolic 164–214; BP diastolic 93–132; PULSE 87–103; RESP 18–24; O2SAT 92–98
[2017-04-16] MEDS: Albuterol 2.5 mg/3 mL Inhalation Solution NEB PRN (00:38)
[2017-04-16 02:35] LABS: BASOPHILS % (AUTO) 0.3 % (0-3); EOSINOPHILS % (AUTO) 8.3 % (0-5); MONOCYTES % (AUTO) 10.6 % (4-12); Mean Corpuscular Hemoglobin 30.8 pg (27.0-35.0); Mean Corpuscular Volume 93.6 fL (81-100); NEUTROPHILS % (AUTO) 66.9 % (40-74); Platelet Count 357 bil/L (150-400)
[2017-04-16 02:53] LABS: INR 1.88 ratio
[2017-04-16] MEDS: HYDROcodone-APAP 5-325 mg Tablet PO PRN ×3 (03:49→15:27)
[2017-04-16] MEDS: Pantoprazole 20 mg ER24 Tablet PO SCH (06:30)
[2017-04-16] MEDS: VARENICLINE TARTRATE PO SCH ×2 (07:56→21:28)
[2017-04-16] MEDS: FERRIC CITRATE PO SCH ×3 (08:00→17:30)
[2017-04-16] MEDS: Lisinopril 40 Tablet PO SCH ×2 (08:05→21:26)
[2017-04-16] MEDS: MeTOProlol XL 50 mg ER24 Tablet PO SCH ×2 (08:06→21:27)
[2017-04-16] MEDS: DOXERCALCIFEROL IV SCH ×2 (08:30)
[2017-04-16] MEDS ORDERED: VITAMIN E MIXED 400 UNIT PO SCH (08:30)
--- NOTE | 2017-04-16 09:41 | NUR ---
dialysis note pt presented in stable condition, no acute distress noted, O2@3L/NC, O2 sat 98%, c/o SOB, no c/o pain access washed soap/water, cleaned with alcohol, pt removed scabs, cleaned with chloraprep, pt inserted buttonhole needles to both site x1 attempt. heparin 1000u/ml administered, treatment started, pt tolerated well, will continue to monitor Addendum: 04/16/17 at 1127 by LYLE CRAMER RN pt c/o of nausea and neck pain zofran given for nausea and norco 5 given for chronic neck pain rated 8/10. Addendum: 04/16/17 at 1336 by LYLE CRAMER RN zofran given for c/o nausea treatment end total treatment time 4.0 hours total net removed 2000ml blood returned, pt held x10 minutes, bleeding stopped, gauze and tape applied, bruit/thrill present pt tolerated treatment well report called to Earnestine DE OLIVEIRA See DTR for complete dialysis record
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
[2017-04-16] MEDS: Ondansetron 2 mg/mL 2 mL Inj IVPUSH PRN ×3 (11:20→16:20)
--- NOTE | 2017-04-16 13:59 | NUR ---
Pt back from Dialysis Report received from Corinne. Telemetry notified.
--- NOTE | 2017-04-16 14:00 | NUR ---
Withheld Medications Withheld Spironolactone for dialysis. Pt states that he only takes his Chantix in the evening only, morning dose held per pt request.
--- NOTE | 2017-04-16 16:14 | DRSVH ---
[facility] [address] [place] [address] Echocardiogram Report Name: JONA ESCALERA Study Date: 04/16/2017 Height: 68 in Hospital Exam Location: [facility] Weight: 192 lb Gender: Male BSA: 2.0 m2 : 1970 Age: 46 yrs BP: 214/132 mm Hg Reason For Study: Pleural Effusion Ordering Physician: HOSPITALIST [facility] Performed By: Bernadine Leonardo Referring Physician[facility] Interpretation Summary 1. Upper limits of normal left ventricular size with mild LVH and normal systolic function with an estimated EF of 60-65% 2. Upper limits of normal right ventricular size with normal systolic function. Estimated RVSP is 58 mm Hg 3. No evidence for significant valvular pathology There is no old study for comparison Procedure: A two-dimensional transthoracic echocardiogram with color flow and Doppler was performed. The study quality was technically good. There is no prior echocardiogram noted for this patient. Patient is borderline tachycardiac with a heart rate of 95- 101 through out the exam. Left Ventricle: The left ventricle is borderline dilated. There is mild concentric left ventricular hypertrophy. Elevated outflow tract velocity at 1.8 m/s. A false chord is noted (normal variant). The ejection fraction is estimated to be 60-65%. No obvious focal wall motion abnormalities. Diastolic function could not be accurately assessed due to tachycardia. Right Ventricle: The right ventricle is borderline dilated. The right ventricular systolic function is normal. Atria: The left atrium is severely dilated. Right atrial size is normal. No color doppler evidence for an ASD. Mitral Valve: The mitral valve leaflets appear thickened, but open well. There is no mitral regurgitation noted. Aortic Valve: The aortic valve is trileaflet. The aortic valve opens well. Nodular calcification on the left coronary cusp. The peak aortic velocity is 2.2 m/sec. There is no hemodynamically significant valvular aortic stenosis. No aortic regurgitation is present. Tricuspid Valve: The tricuspid valve is normal in structure and function. There is mild tricuspid regurgitation. The right ventricular systolic pressure is estimated at 58 mmHg assuming a right atrial pressure of 3 mm Hg. Pulmonic Valve: The pulmonic valve is not well seen, but is grossly normal. Great Vessels: The aortic root is normal size. The aortic arch is mildly enlarged. The aortic arch could not be visualized. The ascending aorta diameter is 3.53 cm. The pulmonary artery is normal size. The IVC is of normal diameter and collapses greater than 50% with a sniff. This suggests a low right atrial pressure of 3 mm Hg. Pericardium/ Pleura There is a moderate loculated pericardial effusion. There is a moderate right-sided pleural effusion. Can not rule out left pleural effusion. MMode/2D Measurements & Calculations LVIDd: 5.9 cm LVIDs: 4.1 cm LA A2 area: 28.3 cm FS: 29.8 % LA A4 area: 30.4 cm EPSS: 0.68 cm LA length (vol): 6.0 cm IVSd: 1.2 cm LA vol: 121.9 ml LVPWd: 1.1 cm LA vol index: 60.7 ml/m IVC diam: 1.8 cm RA long axis: 4.5 cm LVOT diam: 2.0 cm RA area: 15.0 cm AoV Openin.3 cm RA vol: 42.0 ml Ao root diam: 3.4 cm RA : 20.9 ml/m2 asc Aorta Diam: 3.5 cm LV samayoa. diameter/BSA (cm/m^2): 2.9 LV sys. diameter/BSA (cm/m^2): 2.1 RVD1 (basal): 4.2 cm Doppler Measurements & Calculations Ao V2 max: 224.6 cm/sec MVA(VTI): 2.9 cm2 Ao max P.2 mmHg Ao mean P.3 mmHg LVOT Max Jonel: 184.0 cm/sec FORREST(I,D): 2.4 cm sev ratio: 0.77 TR max jonel: 396.9 cm/sec MV V2 mean: 97.1 cm/sec TR max P.2 mmHg MV mean P.5 mmHg PA V2 max: 101.3 cm/sec MV V2 VTI: 31.7 cm PA mean P.2 mmHg Ao V2 mean: 161.8 cm/sec LV V1 max P.5 mmHg Ao V2 VTI: 39.2 cm LV V1 VTI: 30.1 cm FORREST(V,D): 2.5 cm2 PA V2 mean: 71.3 cm/sec FORREST indexed to BSA (cm^2/m^2): 1.2 PA pr(Accel): 30.2 mmHg Reading Physician:04:13 PM
--- NOTE | 2017-04-16 16:57 | PCM.PNMED ---
Subjective Date of Service Apr 16, 2017 Subjective Patient was seen and examined today. He is resting in bed. He states that he strained his neck well coughing during dialysis and has vomited a few times since then. Nursing states that he wishes to contact Dr. 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 Exam Vital Signs Vital Sign - Last Date Time Temp Pulse Resp B/P Pulse Ox O2 Delivery O2 Flow Rate FiO2 04/16/17 16:37 37.3 94 20 184/108 95 Nasal Cannula 2.00 Intake and Output 04/15/17 04/15/17 04/16/17 Cumulative From/Thru 14:58 22:58 06:58 04/15/17 12:22 - 04/16/17 06:13 Intake Total 480 ml 500 ml 980 ml Balance 480 ml 500 ml 980 ml Intake Oral 480 ml 500 ml 980 ml # Voids 0 0 0 Exam General: No acute distress, well-developed, well-nourished, appropriately interactive HEENT: Normocephalic, atraumatic. External ears without defect. Pupils equal, round, and reactive, moist mucosa. Neck: Supple with full range of motion. No jugular venous distension. No bruits. Cardiovascular: Regular rate and rhythm, 3 out of 6 systolic ejection murmur heard best at right upper sternal border Pulmonary: Wheezes in upper lung wallace, breath sounds diminished in the right lower lung field posteriorly Abdomen: Bowel tones present. Soft, nontender, nondistended. No hepatosplenomegaly or masses appreciated. Extremities: No clubbing, cyanosis, edema, or lymphadenopathy appreciated. Skin: Normal temperature, turgor, and texture; no rash, ulcers, or subcutaneous nodules appreciated. Neurological: Cranial nerves grossly intact. Normal muscle strength, tone, and bulk. Psychiatric: Normal mood and affect. Alert and oriented to person, place, and time. IVs and Medications Medications Reviewed: Medications were reviewed in detail Lab and Diagnostics Result Diagram: 04/16/1721904/16/17219 X-Rays, CTs and MRIs PROCEDURE: X-RAY CHEST ONE VIEW, PORTABLE ([id number]) INDICATIONS: SHORTNESS OF BREATH TECHNIQUE: One view of the chest was acquired. COMPARISON: [facility], CR, XR CHEST 1VW (PORTABLE), 04/12/2017, 6: 54. FINDINGS: Surgical changes and devices: None. Lungs and pleura: Unchanged appearance of mild left and moderate right pleural effusion with likely superimposed atelectasis. Mediastinum: Mediastinal contours appear normal. Heart size is normal. Bones and chest wall: No suspicious bony lesions. Overlying soft tissues appear unremarkable. IMPRESSION: Unchanged appearance of bilateral pleural effusions with likely superimposed atelectasis. Dictated by: Orquidea Miranda M.D. on 04/15/2017 at 13:29 Approved by: Orquidea Miranda M.D. on 04/15/2017 at 13:30 12-lead ECG Sinus rhythm, rate of 99, QT interval of 260 ms Cardiac Echo Impressions Echo performed 04/16/17 Interpretation Summary 1. Upper limits of normal left ventricular size with mild LVH and normal systolic function with an estimated EF of 60-65% 2. Upper limits of normal right ventricular size with normal systolic function. Estimated RVSP is 58 mm Hg 3. No evidence for significant valvular pathology There is no old study for comparison Assessment & Plan 46-year-old male with ESRD on dialysis presumably due to hypertensive nephropathy, paroxysmal A. fib, uncontrolled hypertension, recent hospitalization 04/13-, returned to hospital in one day due to worsening dyspnea. Respiratory distress, present on admission, active Progressive worsening dyspnea, productive cough, POA, hx and CXR was unchanged but shows persistent pleural effusion, suggestive of pneumonia with possible possible parapneumonic effusion. pt underwent basic infectious w/u including MRSA swab, resp PCR, sputum cx, all negative date. -Continue Levaquin qd -O2 supplement as needed, target SpO2>92% -Albuterol nebulizer every 4 hours Pleural effusion R>L, POA, presumably parapneumic, present on admission, ongoing -Plan for thoracentesis tomorrow, -NPO after midnight ordered placed, INR pending -Echo 04/16/17 mild LVH with ejection fraction of 60-65% Uncontrolled HTN, POA, chronically elevated 190s, asymptomatic -Increased hydralazine to 100 tid - continue lisinopril 40mg bid, - continue metoprolol xl 100 twice a day -Continue to monitored hx of afib, Chronic, stable, -currently sinus continue to monitor on telemetry -continue to hold Coumadin for possible thoracentesis, follow INR received vit K yesterday -ESRD on HD, appreciate renal service, HD as scheduled MWF, daily wt, avoid renal toxins dispo:Patient will be admitted with inpatient status with expectation of inpatient therapy for more than 2 midnights diet: Renal diet dvt ppx: SCD Full code Patient will likely stay for several more days pending paracentesis Attending Statement The patient was seen and examined together with Dr. Damon on 04/16/17 and I have added additional information to the note above. Satinder Damon DO Apr 16, 2017 16:57 Valentina Terrell DO Apr 16, 2017 17:23
--- NOTE | 2017-04-16 17:27 | NUR ---
Social Work Note: Initial Assessment Data& Assessment: EMR Reviewed. MRI SPECIAL PROCEDURES TECHNOLOGIST met with pt at bedside to discuss discharge planning, SW role explained and discharge planning checklist packet provided. Jhonatan Chiang is a 46 year old male admitted on 04/15/2017 for right pleural effusion. Pt has Medicare and [facility] health insurance [place] supplemental insurance coverage. Pt sees Camelia Hassan EDY for primary care. Pt does not have VA benefits or LTC insurance. Pt lives in [place] with his spouse in an RV with two steps to enter the home. Pt is independent with all ADL's at baseline, drives and does not require any DME. Pt currently requiring oxygen but does not use oxygen at baseline. Pt does not have HH or SNF hx. Pt does go to [facility] for M, W, F dialysis. MD does not identify any concerns for pt capacity for self care at this time. Pt provided with DPOA/AD paperwork to review and complete when possible. Pt is a readmission from yesterday, 04/15/2017 where pt left AMA due to concerns with losing his RV spot. Pt confirmed that this has been resolved and pt has no concerns with remaining hospitalized until medically discharged by the MD. Pt also confirmed that pt to transport pt home when medically ready. Pt denies any needs at this time. No MD orders identified. MRI SPECIAL PROCEDURES TECHNOLOGIST phone number provided on pt white board. Plan: Anticipated discharge home via POV when medically ready. MRI SPECIAL PROCEDURES TECHNOLOGIST to continue to follow if any pt needs or MD orders arise. SHERI Corona Addendum: 04/16/17 at 1737 by KEE PINTO Amended: Links added.
--- NOTE | 2017-04-16 18:09 | NUR ---
Pain/Vomiting Pt reported neck pain 03/01. Pt administered [place] 5/325 with minimal relief. Pt used call light to notify this RN that he was vomiting. Pt was found in his bathroom vomiting into garbage bin. Pt was administered 4mg of Zofran with some relief. Pt stated that the vomiting was due to the pain in his neck. He had experienced similar symptoms in his past. Pt stated that when his pain gets to the current level he takes his pain medication and his prescribed Temazepam in order to experience relief. MD notified and ordered one time extra dose of Temazepam. Upon reassessment pt stated that the combination was starting to help with his neck pain. At the time of this writing, pt appears to be asleep.
[2017-04-17] VITALS (9 sets, daily range): BP systolic 105–192; BP diastolic 50–117; PULSE 83–96; RESP 16–28; O2SAT 91–98
[2017-04-17 06:00] LABS: BASOPHILS % (AUTO) 0.6 % (0-3); EOSINOPHILS % (AUTO) 6.9 % (0-5); MONOCYTES % (AUTO) 11.8 % (4-12); Mean Corpuscular Hemoglobin 30.8 pg (27.0-35.0); NEUTROPHILS % (AUTO) 67.8 % (40-74); Platelet Count 395 bil/L (150-400)
--- NOTE | 2017-04-17 06:29 | NUR ---
Restful Night/Pt concerns Pt appeared to sleep comfortably the majority of the night, no c/o nausea, given Tylenol x1 this morning for 4/10 neck pain which pt stated was effective at bringing pain down to 1/10. Pt concerned about additional dialysis and would like to speak to his supervisor waterproofing beforehand. Pt kept NPO after midnight in case of procedure, except for Tylenol this morning.
[2017-04-17] MEDS: Pantoprazole 20 mg ER24 Tablet PO SCH (06:30)
[2017-04-17] MEDS: MeTOProlol XL 50 mg ER24 Tablet PO SCH ×2 (08:00→20:19)
[2017-04-17] MEDS: FERRIC CITRATE PO SCH ×2 (08:00→17:30)
[2017-04-17] MEDS: Lisinopril 40 Tablet PO SCH ×2 (08:00→20:18)
[2017-04-17 08:01] LABS: INR 1.26 ratio
[2017-04-17] MEDS: VARENICLINE TARTRATE PO SCH ×2 (08:03→20:20)
--- NOTE | 2017-04-17 09:46 | PCM.PNNEPH ---
Subjective Date of Service Apr 17, 2017 Subjective (+) N/V while on HD yesterday. He stated that it felt like he was dehydrated. He preferred no further HD today. NPO for thoracocentesis. BP has been elevated throughout the night. HE requested to change his EDW to 80 kg. Exam Vital Signs Vital Sign - Last Date Time Temp Pulse Resp B/P Pulse Ox O2 Delivery O2 Flow Rate FiO2 04/17/17 09:27 36.4 90 28 105/50 91 Nasal Cannula 1.50 Intake and Output 04/16/17 04/16/17 04/17/17 Cumulative From/Thru 15:00 23:00 07:00 04/15/17 12:22 - 04/17/17 06:50 Intake Total 760 ml 215 ml 1955 ml Output Total 2000 ml 2000 ml Balance -2000 ml 760 ml 215 ml -45 ml Intake Oral 760 ml 215 ml 1955 ml Output Ultrafiltrate 2000 ml 2000 ml # Voids 3 3 # Bowel Movements 1 1 Exam GA: AAOX3, NAD. HEENT: Normocephalic, atraumatic. Extraocular movements intact. No sinus tenderness. Oropharynx clear. Mucous membranes are moist. NECK: Supple without lymph node. No JVD. No thyroid gland enlargement. CHEST: Decreased breath sounds on the right lower long, occ coarse crackles on the left lung. HEART: S1, S2. Regular rate and rhythm. ABDOMEN: Soft. Nontender. Nondistended. No organomegaly. EXTREMITIES: No cyanosis, clubbing or edema. NEUROLOGIC: Alert and oriented x3. No focal deficit. No sensory deficit. Lab and Diagnostics Result Diagram: 04/17/17 0540 04/17/17 0540 X-Rays, CTs and MRIs PROCEDURE: X-RAY CHEST ONE VIEW, PORTABLE ([id number]) INDICATIONS: SHORTNESS OF BREATH TECHNIQUE: One view of the chest was acquired. COMPARISON: [facility], CR, XR CHEST 1VW (PORTABLE), 04/12/2017, 6: 54. FINDINGS: Surgical changes and devices: None. Lungs and pleura: Unchanged appearance of mild left and moderate right pleural effusion with likely superimposed atelectasis. Mediastinum: Mediastinal contours appear normal. Heart size is normal. Bones and chest wall: No suspicious bony lesions. Overlying soft tissues appear unremarkable. IMPRESSION: Unchanged appearance of bilateral pleural effusions with likely superimposed atelectasis. Dictated by: Orquidea Miranda M.D. on 04/15/2017 at 13:29 Approved by: Orquidea Miranda M.D. on 04/15/2017 at 13:30 12-lead ECG Sinus rhythm, rate of 99, QT interval of 260 ms Cardiac Echo Impressions Echo performed 04/16/17 Interpretation Summary 1. Upper limits of normal left ventricular size with mild LVH and normal systolic function with an estimated EF of 60-65% 2. Upper limits of normal right ventricular size with normal systolic function. Estimated RVSP is 58 mm Hg 3. No evidence for significant valvular pathology There is no old study for comparison Plan Impression 1. Difficulty breathing secondary to right pleural effusion. 2. Recent history of healthcare associated pneumonia. 3. Hemodialysis Every Sunday and Sunday. EDW 80 kg. 4. Uncontrolled hypertension with hypertensive nephrosclerosis. - on metoprolol, hydralazine, lisinopril and aldactone. 5. Paroxysmal atrial fibrillation status post cardioversion. 6. Renal osteodystrophy. Plan: Next HD in am. Add doxazosin 4 mg HS. Pending thoracocentesis. Shara Wang MD Apr 17, 2017 09:46
[2017-04-17] MEDS: HYDROcodone-APAP 5-325 mg Tablet PO PRN ×2 (11:15→15:39)
[2017-04-17] MEDS ORDERED: levoFLOXacin Inj 500 MG in IV Premix 1 EACH IV SCH (13:00)
--- NOTE | 2017-04-17 16:00 | NUR ---
Pt off unit for thoracentesis. epitaxial reactor technician notified.
--- NOTE | 2017-04-17 16:56 | PCM.PNMED ---
Subjective Date of Service Apr 17, 2017 Subjective Patient was seen and examined today. He states that he is feeling much better and is able to ambulate up and down the halls without desaturating. Nursing states no acute overnight events. Exam Vital Signs Vital Sign - Last Date Time Temp Pulse Resp B/P Pulse Ox O2 Delivery O2 Flow Rate FiO2 04/17/17 15:42 37.2 89 18 192/117 93 Room Air 04/17/17 07:53 2.00 Intake and Output 04/16/17 04/16/17 04/17/17 Cumulative From/Thru 15:00 23:00 07:00 04/15/17 12:22 - 04/17/17 06:50 Intake Total 760 ml 215 ml 1955 ml Output Total 2000 ml 2000 ml Balance -2000 ml 760 ml 215 ml -45 ml Intake Oral 760 ml 215 ml 1955 ml Output Ultrafiltrate 2000 ml 2000 ml # Voids 3 3 # Bowel Movements 1 1 Exam General: No acute distress, well-developed, well-nourished, appropriately interactive HEENT: Normocephalic, atraumatic. It is membranes moist Neck: Supple with full range of motion. No jugular venous distension. Cardiovascular: Regular rate and rhythm 2/6 systolic ejection murmur, no rubs or gallops appreciated Pulmonary: Slight wheezes in upper lung wallace, breath sounds diminished at the bases right greater than left. Normal respiratory effort with no use of accessory muscles. Abdomen: Bowel tones present. Soft, nontender, nondistended. No hepatosplenomegaly or masses appreciated. Extremities: No clubbing, cyanosis, edema, or lymphadenopathy appreciated. Skin: Normal temperature, turgor, and texture; no rash, ulcers, or subcutaneous nodules appreciated. Neurological: Cranial nerves grossly intact. Normal muscle strength, tone, and bulk. Psychiatric: Normal mood and affect. Alert and oriented to person, place, and time. IVs and Medications Medications Reviewed: Medications were reviewed in detail Lab and Diagnostics Result Diagram: 04/17/1753904/17/17539 X-Rays, CTs and MRIs PROCEDURE: X-RAY CHEST ONE VIEW, PORTABLE ([id number]) INDICATIONS: SHORTNESS OF BREATH TECHNIQUE: One view of the chest was acquired. COMPARISON: [facility], CR, XR CHEST 1VW (PORTABLE), 04/12/2017, 6: 54. FINDINGS: Surgical changes and devices: None. Lungs and pleura: Unchanged appearance of mild left and moderate right pleural effusion with likely superimposed atelectasis. Mediastinum: Mediastinal contours appear normal. Heart size is normal. Bones and chest wall: No suspicious bony lesions. Overlying soft tissues appear unremarkable. IMPRESSION: Unchanged appearance of bilateral pleural effusions with likely superimposed atelectasis. Dictated by: Orquidea Miranda M.D. on 04/15/2017 at 13:29 Approved by: Orquidea Miranda M.D. on 04/15/2017 at 13:30 12-lead ECG Sinus rhythm, rate of 99, QT interval of 260 ms Cardiac Echo Impressions Echo performed 04/16/17 Interpretation Summary 1. Upper limits of normal left ventricular size with mild LVH and normal systolic function with an estimated EF of 60-65% 2. Upper limits of normal right ventricular size with normal systolic function. Estimated RVSP is 58 mm Hg 3. No evidence for significant valvular pathology There is no old study for comparison Assessment & Plan 46-year-old male with ESRD on dialysis presumably due to hypertensive nephropathy, paroxysmal A. fib, uncontrolled hypertension, recent hospitalization 04/13-, returned to hospital in one day due to worsening dyspnea. Respiratory distress, present on admission, stable -CXR was shows persistent pleural effusion, suggestive of pneumonia with possible parapneumonic effusion. pt underwent basic infectious w/u including MRSA swab, resp PCR, sputum cx, all negative to date. -Continue Levaquin qd -O2 supplement as needed, target SpO2>92% -Albuterol nebulizer every 4 hours Pleural effusion R>L, POA, presumably parapneumic, present on admission, ongoing -Patient sent for thoracentesis today with pleural fluid cytology and cultures ordered -INR on day of procedure 1.6 -Echo 04/16/17 mild LVH with ejection fraction of 60-65% -Incentive spirometry ordered Uncontrolled HTN, POA, asymptomatic -chronically elevated 190s -Continue hydralazine 100 tid - continue lisinopril 40mg bid, - continue metoprolol xl 100 twice a day -Continue to monitor hx of afib, Chronic, stable -currently sinus continue to monitor on telemetry -Resumed Coumadin after thoracentesis -ESRD on HD, appreciate renal service, HD as scheduled MWF, daily wt, avoid renal toxins -Patient declined hemodialysis on 04/17/17 stating that he felt dehydrated diet: Renal diet dvt ppx: SCD Full code Disposition: Patient will likely stay another day or 2 to be monitored after paracentesis and until we get some results on the fluid drained off Resuscitation Status: CPR: Attempt Resuscitation Time spent 30 minutes Attending Statement I have seen and evaluated the patient at bedside in addition to directly supervising care provided by resident physician Dr Damon on 04/17/2017. I agree with above documentation. Satinder Damon DO Apr 17, 2017 16:56 Josh Jordan DO Apr 18, 2017 08:04
--- NOTE | 2017-04-17 17:06 | DRSVH ---
PROCEDURE: X-RAY CHEST ONE VIEW ([id number]) INDICATIONS: POST THORACENTESIS TECHNIQUE: One view of the chest was acquired. COMPARISON: [facility], CR, XR CHEST 1VW (PORTABLE), 04/15/2017, 12:45. FINDINGS: Surgical changes and devices: None. Lungs and pleura: A moderate-sized right-sided pleural effusion is best appreciated on the lateral as pect of the right hemithorax, which is smaller compared to the previous exam, given differences in im aging technique. Mild basilar atelectasis is present. There is a trace left-sided pleural effusion, probably not significantly changed. No lobar consolidation or definite pneumothorax is evident. Mediastinum: Mediastinal contours appear normal. Heart size is normal. There is aortic atheroscler osis. Bones and chest wall: No suspicious bony lesions. Overlying soft tissues appear unremarkable. IMPRESSION: 1. Moderate right-sided pleural effusion is smaller. 2. Trace left-sided pleural effusion. 3. No pneumothorax. Dictated by: Cy Gerber M.D. on 04/17/2017 at 16:02 Approved by: Cy Gerber M.D. on 04/17/2017 at 16:03
--- NOTE | 2017-04-17 17:16 | NUR ---
Respiratory Thoracentesis removed 1 Liter of fluid from right pleural space. Pt lung sounds increased on right side. Pt sats improved to 100% on RA. Pt states that his breathing feels better.
[2017-04-17 18:24] LABS: GLUCOSE,PLEURAL FLUID 42 mg/dL; TOTAL PROTEIN,PLEURAL FLUID 5 g/dL
[2017-04-17 19:04] LABS: BFWBC 800 /mm3; MONOCYTES,BODY FLUID 26 %; OTHER CELLS,BODY FLUID 3
[2017-04-18] VITALS (8 sets, daily range): BP systolic 154–161; BP diastolic 91–95; PULSE 28–97; RESP 18; O2SAT 93–97
[2017-04-18 06:06] LABS: BASOPHILS % (AUTO) 0.6 % (0-3); EOSINOPHILS % (AUTO) 7.4 % (0-5); MONOCYTES % (AUTO) 11.5 % (4-12); Mean Corpuscular Hemoglobin 30.4 pg (27.0-35.0); Mean Corpuscular Volume 94.2 fL (81-100); NEUTROPHILS % (AUTO) 60.5 % (40-74); Platelet Count 334 bil/L (150-400)
--- NOTE | 2017-04-18 07:32 | NUR ---
Restful Night Pt given HS meds and Restoril, appeared to sleep comfortably overnight, had no c/o pain, SBP 140s-150s. Pt appeared in good spirits and reports breathing is better and tolerating RA.
[2017-04-18] MEDS: FERRIC CITRATE PO SCH ×3 (08:00→17:19)
[2017-04-18] MEDS: DOXERCALCIFEROL IV SCH ×2 (08:30)
[2017-04-18] MEDS: MeTOProlol XL 50 mg ER24 Tablet PO SCH (09:19)
[2017-04-18] MEDS: Lisinopril 40 Tablet PO SCH (09:19)
[2017-04-18] MEDS: Pantoprazole 20 mg ER24 Tablet PO SCH (09:19)
[2017-04-18] MEDS: VARENICLINE TARTRATE PO SCH (09:20)
--- NOTE | 2017-04-18 11:56 | PCM.DIMED ---
Satinder Damon DO 04/18/17 1156: Discharge Instructions Date of Service Apr 18, 2017 Dates of Hospitalization Apr 15, 2017 at 14:08 Discharge Diagnosis Discharge Diagnosis Respiratory distress Pleural effusion Uncontrolled hypertension Atrial fibrillation Medication Instructions Additional med instructions Please resume taking your regularly prescribed home medications as directed. Test Results Test Results Your chest x-ray showed that he had a pleural effusion. We are awaiting the lab results from the fluid drawn from your lung. Activity Discharge Activity: Limited until seen by PCP Call your provider Call your provider for: Fever or Chills, Shortness of breath, Bleeding, Chest pain, Vomitting, Excessive diarrhea, Weakness (unilateral) Patient Instructions Patient Instructions Please follow-up with your primary care physician in 1-2 weeks. Continue to see your parquetry layer and have your dialysis performed as advised. Continue to have your INR checked regularly for your Coumadin. I will review the remaining pending labs for your thoracentesis, and will call you if there is anything concerning. In the meantime, he would need to be followed up by a rn ccu. We will help arrange this. Follow-up Provider: Camelia Hassan Follow-up with PCP in: 1 week Josh Jordan DO 04/18/17 1800: Discharge Instructions Attending's Statement Read and agree Satinder Damon DO Apr 18, 2017 11:56 Josh Jordan DO Apr 18, 2017 18:00
--- NOTE | 2017-04-18 12:08 | PCM.PNNEPH ---
Subjective Date of Service Apr 18, 2017 Subjective Feeling better, s/p right thoracocentesis with 1L fluid removed. BP improved. Exam Vital Signs Vital Sign - Last Date Time Temp Pulse Resp B/P Pulse Ox O2 Delivery O2 Flow Rate FiO2 04/18/17 09:56 76 04/18/17 09:17 37.1 18 161/95 93 Room Air 04/17/17 07:53 2.00 Intake and Output 04/17/17 04/17/17 04/18/17 Cumulative From/Thru 15:00 23:00 07:00 04/15/17 12:22 - 04/17/17 18:28 Intake Total 0 ml 1955 ml Output Total 0 ml 2000 ml Balance 0 ml -45 ml Intake Oral 0 ml 1955 ml Output Urine Total 0 ml 0 ml Ultrafiltrate 2000 ml # Voids 3 # Bowel Movements 3 4 Exam GA: AAOX3, NAD. HEENT: Normocephalic, atraumatic. Extraocular movements intact. No sinus tenderness. Oropharynx clear. Mucous membranes are moist. NECK: Supple without lymph node. No JVD. No thyroid gland enlargement. CHEST: Decreased breath sounds on the right lower long, occ coarse crackles on the left lung. HEART: S1, S2. Regular rate and rhythm. ABDOMEN: Soft. Nontender. Nondistended. No organomegaly. EXTREMITIES: No cyanosis, clubbing or edema. NEUROLOGIC: Alert and oriented x3. No focal deficit. No sensory deficit. Lab and Diagnostics Result Diagram: 04/18/17 0500 04/18/17 0500 X-Rays, CTs and MRIs PROCEDURE: X-RAY CHEST ONE VIEW, PORTABLE ([id number]) INDICATIONS: SHORTNESS OF BREATH TECHNIQUE: One view of the chest was acquired. COMPARISON: [facility], CR, XR CHEST 1VW (PORTABLE), 04/12/2017, 6: 54. FINDINGS: Surgical changes and devices: None. Lungs and pleura: Unchanged appearance of mild left and moderate right pleural effusion with likely superimposed atelectasis. Mediastinum: Mediastinal contours appear normal. Heart size is normal. Bones and chest wall: No suspicious bony lesions. Overlying soft tissues appear unremarkable. IMPRESSION: Unchanged appearance of bilateral pleural effusions with likely superimposed atelectasis. Dictated by: Orquidea Miranda M.D. on 04/15/2017 at 13:29 Approved by: Orquidea Miranda M.D. on 04/15/2017 at 13:30 12-lead ECG Sinus rhythm, rate of 99, QT interval of 260 ms Cardiac Echo Impressions Echo performed 04/16/17 Interpretation Summary 1. Upper limits of normal left ventricular size with mild LVH and normal systolic function with an estimated EF of 60-65% 2. Upper limits of normal right ventricular size with normal systolic function. Estimated RVSP is 58 mm Hg 3. No evidence for significant valvular pathology There is no old study for comparison Plan Impression 1. Difficulty breathing secondary to right pleural effusion s/p thoracocentesis. feeling better. 2. Recent history of healthcare associated pneumonia. 3. Hemodialysis Every Sunday and Sunday. EDW 80 kg. 4. Uncontrolled hypertension with hypertensive nephrosclerosis. - on metoprolol, hydralazine, lisinopril and aldactone. - doxazosin added last night. 5. Paroxysmal atrial fibrillation status post cardioversion. 6. Renal osteodystrophy. Plan: HD today. If stable after HD, then will be d/c'd home. Continue current BP meds. Shara Wang MD Apr 18, 2017 12:08
--- NOTE | 2017-04-18 12:58 | PCM.DC.MED ---
Discharge Summary Date of Service Apr 18, 2017 Dates of Hospitalization Date of Hospital Admission Apr 15, 2017 at 14:08 Date of Discharge: Apr 18, 2017 Providers: Admitting Physician: Jacqui Person MD Primary Care Physician: Camelia Hassan Attending Physician: Josh Jordan DO Diagnosis at Time of Discharge Diagnosis at Time of Discharge Respiratory distress Pleural effusion Uncontrolled hypertension Atrial fibrillation Consultations Nephrology, Dr. Reyes Procedures XRay, CTs & MRIs PROCEDURE: X-RAY CHEST ONE VIEW, PORTABLE ([id number]) INDICATIONS: SHORTNESS OF BREATH TECHNIQUE: One view of the chest was acquired. COMPARISON: [facility], CR, XR CHEST 1VW (PORTABLE), 04/12/2017, 6: 54. FINDINGS: Surgical changes and devices: None. Lungs and pleura: Unchanged appearance of mild left and moderate right pleural effusion with likely superimposed atelectasis. Mediastinum: Mediastinal contours appear normal. Heart size is normal. Bones and chest wall: No suspicious bony lesions. Overlying soft tissues appear unremarkable. IMPRESSION: Unchanged appearance of bilateral pleural effusions with likely superimposed atelectasis. Dictated by: Orquidea Miranda M.D. on 04/15/2017 at 13:29 Approved by: Orquidea Miranda M.D. on 04/15/2017 at 13:30 ECG 12 Lead Sinus rhythm, rate of 99, QT interval of 260 ms Cardiac Echo Impression Echo performed 04/16/17 Interpretation Summary 1. Upper limits of normal left ventricular size with mild LVH and normal systolic function with an estimated EF of 60-65% 2. Upper limits of normal right ventricular size with normal systolic function. Estimated RVSP is 58 mm Hg 3. No evidence for significant valvular pathology There is no old study for comparison Invasive Procedures Right-sided thoracentesis Hemodialysis Brief History 46-year-old male with ESRD on dialysis presumably due to hypertensive nephropathy, paroxysmal A. fib, uncontrolled hypertension, recent hospitalization , returned to hospital in one day due to worsening dyspnea. A chest x-ray showed a right pleural effusion. His respiratory distress stabilized and he was saturating well on room air and getting every 4 hours albuterol nebulization treatments. His chronic hypertension was controlled with spironolactone, lisinopril, metoprolol, and hydralazine. His echocardiogram showed an ejection fraction of 60-65%. During his hospital stay, the patient was given vitamin K to reduce his INR to a safe level for a therapeutic thoracentesis. Thoracentesis was performed on 04/13/17. He received hemodialysis on 04/18/17. On day of discharge his breathing was much improved, he was ambulating without desaturating. His vital signs were stable and he was tolerating food and water. Patient will need close follow-up by nephrology and his primary care physician. He was instructed to resume his home medications including his Coumadin, and to follow-up with his INR checks. Hospital Course See below for detailed hospital course Respiratory distress, present on admission, stable -Chest x-ray initially suspicious for pneumonia, pt underwent basic infectious w /u including MRSA swab, resp PCR, sputum cx, all negative to date. -Received 3 days of Levaquin -Albuterol nebulizer every 4 hours Pleural effusion R>L, POA, presumably parapneumic, present on admission, resolved -Thoracentesis performed 04/18/17 with pleural fluid cytology and cultures -INR on day of procedure 1.6 -Pleural fluid consistent with exudate with pleural fluid protein/blood protein ratio of 0.7 -Nucleated cells total 800/mcL. Nucleated cells of less than 10,000/microliter reduces likelihood of bacterial pneumonia. This is more likely a chronic exudate , as nucleated cells are less than 5000 per microliter. Pleural fluid eosinophilia of 17 and RBCs of 730,000 is consistent with hemothorax. -Echo 04/16/17 mild LVH with ejection fraction of 60-65% -Incentive spirometry ordered -Chest x-ray performed on day of discharge displayed an improved fluid accumulation on the right side, the lung is not fully expanded and some fluid remains. -Patient was anxious to leave, and I told him that it is very important that he follow up with a lip cutter and scorer within 1-2 weeks. Uncontrolled HTN, POA, asymptomatic -chronically elevated 190s -Continue hydralazine 100 tid - continue lisinopril 40mg bid, - continue metoprolol xl 100 twice a day hx of afib, Chronic, stable -currently sinus -Resumed Coumadin after thoracentesis -ESRD on HD, appreciate renal service, HD as scheduled MWF, daily wt, avoid renal toxins -Patient declined hemodialysis on 04/17/17 stating that he felt dehydrated, and underwent 2 hours of dialysis on day of discharge. Full code Disposition: Home Exam Vital Signs (Last) Date Time Temp Pulse Resp B/P Pulse Ox O2 Delivery O2 Flow Rate FiO2 04/18/17 12:09 37.0 79 18 154/92 95 Room Air 04/17/17 07:53 2.00 Exam Pt breathing comfortably on room air. No acute distress Good airflow noted in all lung field, course breath sounds remain on right middle and lower quadrants. Test 04/15/17 18:54 04/16/17 02:20 04/17/17 05:40 04/17/17 17:38 Phosphorus Level 3.6mg/dL (2.5-4.9) Magnesium Level 2.0mg/dL (1.6-2.6) Prothrombin Time 13.6sec (8.1-12.5) Prothromb Time International Ratio 1.26ratio Activated Partial Thromboplast Time 38.3sec (22.8-33.0) Body Fluid Source Pleural fluid Body Fluid Color Red (Clear) Body Fluid Appearance Bloody Body Fluid WBC 800/mm3 Body Fluid RBC 878152/mm3 Body Fluid Polynuclear WBCs 34% Body Fluid Lymphocytes 23% Body Fluid Monocytes 26% Body Fluid Eosinophils 17% Body Fluid Basophils 0% Body Fluid Lactate Dehydrogenase 288U/L Pleural Fluid Total Protein 5g/dL Pleural Fluid Glucose 42mg/dL Test 04/17/17 17:42 04/18/17 05:00 White Blood Count 8.3th/mm3 (3.8-10.1) Red Blood Count 3.09mil/mm3 (4.40-5.80) Hemoglobin 9.4g/dL (13.8-17.2) Hematocrit 29.1% (41.0-50.0) Mean Corpuscular Volume 94.2fL (81-100) Mean Corpuscular Hemoglobin 30.4pg (27.0-35.0) Mean Corpuscular Hemoglobin Concent 32.3% (32.0-37.0) Red Cell Distribution Width 13.5% (12.3-15.4) Platelet Count 334bil/L (150-400) Neutrophils (%) (Auto) 60.5% (40-74) Lymphocytes (%) (Auto) 19.3% (14-46) Monocytes (%) (Auto) 11.5% (4-12) Eosinophils (%) (Auto) 7.4% (0-5) Basophils (%) (Auto) 0.6% (0-3) Sodium Level 139mEq/L (134-144) Potassium Level 4.2mEq/L (3.5-5.2) Chloride Level 93mEq/L (97-108) Carbon Dioxide Level 31mmol/L (18-29) Blood Urea Nitrogen 55mg/dL (6-24) Creatinine 9.74mg/dL (0.76-1.27) Estimat Glomerular Filtration Rate 6mL/min (>59) Glucose Level 87mg/dL (60-99) Calcium Level 8.4mg/dL (8.5-10.1) Total Bilirubin 0.4mg/dL (0.0-1.2) Aspartate Amino Transf (AST/SGOT) 24U/L (0-50) Alanine Aminotransferase (ALT/SGPT) 13U/L (0-44) Alkaline Phosphatase 187U/L (25-150) Total Protein 7.0g/dL (6.4-8.4) Albumin 3.3g/dL (3.4-5.0) Discharge Medications Discharge Medications ([vitamin D2]) 1.2 MG PO Q week (Reported) Cholecalciferol (Vitamin D3) (Vitamin D3) 50,000 Unit Capsule 50,000 UNIT PO WEEKLY (Reported) FRIDAYS Ferric Citrate (Ferric Citrate) 210 Mg Tablet 420 MG PO TIDWM (Reported) Hydralazine (Hydralazine) 25 Mg Tablet 25 MG PO BID (Reported) Lisinopril (Lisinopril) 40 Mg Tablet 40 MG PO QAM (Reported) Metoprolol Succinate ER (Metoprolol Succinate ER) 50 Mg Tab.er.24h 50 MG PO BID (Reported) Omeprazole (Omeprazole) 20 Mg Capsule.dr 20 MG PO QAM (Reported) Pravastatin (Pravastatin) 40 Mg Tablet 40 MG PO HS (Reported) Spironolactone (Spironolactone) 25 Mg Tablet 25 MG PO BID (Reported) Temazepam (Temazepam) 30 Mg Cap 30 MG PO HS (Reported) Varenicline Tartrate (Chantix) 0.5 Mg Tablet 0.5 MG PO DAILY (Reported) Vit B Comp/C/FA/Iron/Vit E (Vitamin B Complex Tablet) 1 Each Tablet 1 EACH PO QAM (Reported) Vitamin E Mixed (Vitamin E) 400 Unit Capsule 400 UNIT PO DAILY (Reported) Warfarin Sodium (Warfarin Sodium) 5 Mg Tablet 5 MG PO , , , (Reported) 7.5 MG ON FRIDAYS AND 5 MG ALL OTHER DAYS Warfarin Sodium (Warfarin Sodium) 5 Mg Tablet 7.5 MG PO , Sun, Sun (Reported) 7.5 MG ON FRIDAYS AND 5 MG ALL OTHER DAYS As needed Acetaminophen (Acetaminophen) 325 Mg Tablet 650 MG PO Q4H PRN PRN For Headache ( Reported) Hydrocodone-Acetaminophen 5-325 mg (Hydrocodone-Acetaminophen 5-325 mg) 1 Each Tablet 1 TABLET PO Q12 Hrs PRN PRN For Pain (Reported) Additional med instructions Please resume taking your regularly prescribed home medications as directed. Followup Plan Discharge Activity: Limited until seen by PCP Patient Instructions Please follow-up with your primary care physician in 1-2 weeks. Continue to see your field crop farmworker and have your dialysis performed as advised. Continue to have your INR checked regularly for your Coumadin. Follow-up Provider: Camelia Hassan Follow-up with PCP in: 1 week Time spent 45 minutes Attending Statement I have seen and evaluated patient at bedside in addition to directly supervising care provided by resident physician Dr. Damon on 04/18/2017. I agree with above documentation. Please note, pleural effusion was drained however parapneumonic effusion appeared to remain based on repeat X-ray imaging. The possibility of chest tube placement for further drainage/resolution however patient declined. He in fact had pleuracentesis on 04/17, which resulting in prompt resolution of oxygen supplementation. He was adamantly opposed to remaining in hospital, but did agree to follow up soon after discharge with PCP in addition to consideration of further FU with pulmonology or surgeon in effusion remained based on repeat imaging. He was aware some risk remained in foregoing treatment but none the less declined further in patient evaluation. copies to: Camelia Hassan Aaron C DO Apr 18, 2017 12:58 Josh Jordan DO Apr 18, 2017 21:27
--- NOTE | 2017-04-18 13:00 | NUR ---
Transfer to [facility] Patient arrived in hospital bed. Report received from Dee Dee Florentino RN. Patient aware of plan of care. cafeteria helper at bedside. Addendum: 04/18/17 at 1705 by ALEJANDRO VAUGHN RN Patient transported back to room. cafeteria helper gave report to primary RN.
--- NOTE | 2017-04-18 15:24 | NUR ---
dialysis note pt presented A&Ox3, no acute distress, no c/o pain or SOB pt cleaned access with alcohol, removed scabs, cleaned with chloraprep, pt cannulated sites x1 attempt each site heparin 1000u/ml administered treatment started without difficulty total treatment time 1.5 hours, pt being d/c'd after dialysis and ended treatment early due to ride schedule total net removed 700ml pt tolerated treatment well blood returned, pt held sites x10 minutes, bleeding stopped, tape and gauze applied Report called to Sindhu DE OLIVEIRA See DTR for complete dialysis record
--- NOTE | 2017-04-18 15:51 | NUR ---
Took over patient care 1550 Addendum: 04/18/17 at 1724 by LEONOR BARRAZA CNA transferred patient care back to Joselyn Sheets [id number]
--- NOTE | 2017-04-18 17:19 | DRSVH ---
PROCEDURE: US GUIDED THORACENTESIS BY REFERRING PHYSICIAN ([id number]) INDICATIONS: Pleural effusions TECHNIQUE: The indications, alternatives, benefits, risks, and complications of the procedure were explained to the patient. Written informed consent was obtained and placed in the chart. The chest was examined sonographically, and an appropriate site was chosen for thoracentesis. The skin was prepared and annette ped in the usual sterile fashion, and 1% lidocaine was infiltrated from the skin down through the ple ural surface. A 19-gauge catheter-covered needle was then introduced into the pleural space, the cat heter was advanced and the needle was withdrawn, and thereafter pleural fluid was aspirated. The cat heter was then removed and a dressing was applied. The attending physician was present, and personal ly performed the procedure. COMPARISON: None. FINDINGS: Access site: Right hemithorax. Needle: One-Step centesis catheter with introducer needle. Fluid volume and description: 975 cc of bloody pleural fluid. Fluid sent for diagnostic testing: Fluid sent for cytology, multiple chemistry panels and therapeuti c drainage. Medications: 1% lidocaine for local anaesthesia. Complications: None; post-procedural chest radiograph is pending to assess for pneumothorax. IMPRESSION: Successful ultrasound-guided thoracentesis. Dictated by: Jeffrey BERNARDO Interpreted: Isra Diaz MD on 04/18/2017 at 9:11 Approved by: Isra Diaz M.D. on 04/18/2017 at 17:17
--- NOTE | 2017-04-18 18:10 | NUR ---
Discharge: Discussed discharge instructions and medications. Patient verbalized understanding of follow up appointments. Tele: Sinus 70-80. Denies CP. Able to ambulate in room and halls without report of CP, dizziness or SOB. IV DC'd intact by RN. Patients personal medications were return to him. Patient exited unit on foot escorted to personal vehicle with all personal belongings and was transported home by significant other.
--- NOTE | 2017-04-18 19:52 | DRSVH ---
PROCEDURE: X-RAY CHEST ONE VIEW, PORTABLE ([id number]) INDICATIONS: Pleural effusion TECHNIQUE: One view of the chest was acquired. COMPARISON: [facility], CR, XR CHEST 1VW, 04/17/2017, 16:48. FINDINGS: Surgical changes and devices: None. Lungs and pleura: Mild to moderate right and minimal left pleural effusion are present, decreased com pared to prior exam. Mediastinum: Mediastinal contours appear normal. Heart size is normal. Bones and chest wall: No suspicious bony lesions. Overlying soft tissues appear unremarkable. IMPRESSION: Mild/moderate right and minimal left pleural effusion, slightly decreased compared to miri or exam. Dictated by: Orquidea Miranda M.D. on 04/18/2017 at 19:49 Approved by: Orquidea Miranda M.D. on 04/18/2017 at 19:50
[2017-04-19] MEDS ORDERED: Darbepoetin Alfa (ESRD) 40 mCg/0.4 mL Inj SUBQ SCH (08:30)
--- NOTE | 2017-04-19 17:19 | PATH ---
SURGICAL PATHOLOGY Attending Physician:See Additional MD CASE STATUS: Signed Out PATIENT NAME: Jhonatan Chiang PID: [id number] : 1970 DATE COLLECTED:04/17/2017 00:00 SPECIMEN: Pleural Fluid CLINICAL HISTORY: Pleural Fluid ICD-10 code not given FINAL DIAGNOSIS: PLEURAL FLUID, CYTOLOGY: NEGATIVE FOR MALIGNANT CELLS. NOTE: Slides contain predominately blood and a few rare alveolar macrophages. No high-grade malignant cells are identified. ICD10 J90 GROSS DESCRIPTION: Received fresh on 04/18/2017 is approximately 25 cc of cloudy hemorrhagic fluid. Prepared are one cell block and one Cytospin slide. Vo ICD-9 CODES: CPT CODES: 1: 03071, 59314, 44676 Electronically Signed Out Kathy Pedroza MD [facility] Pathology [facility] [address], [place] [address] Technical component performed at [facility], [facility] [address], [place], [address]
[2017-04-22] MEDS ORDERED: Ergocalciferol (Vit D2) 50,000 Unit Capsule PO SCH (08:30)
[2017-04-22] MEDS ORDERED: CHOLECALCIFEROL 50000 UNIT PO SCH (08:30)
== END 2017-04-18 18:10 | disposition home or self-care (01) | DRG 186 ==
LOC: SED 12:15 → PCC 14:08
PROVIDERS: ADMIT Internal Medicine; ATTEND Family Medicine
PROC: 5A1D60Z (ICD-10-PCS; 2017-04-16)
PROC: 0W993ZX Drainage of Right Pleural Cavity, Percutaneous Approach, Diagnostic (ICD-10-PCS; principal; 2017-04-17)
DX: J90 Pleural effusion, not elsewhere classified (principal); N18.6 End stage renal disease; I12.0 Hypertensive chronic kidney disease with stage 5 chronic kidney disease or end stage renal disease; D63.1 Anemia in chronic kidney disease; I48.2 Chronic atrial fibrillation; N25.0 Renal osteodystrophy; I16.0 Hypertensive urgency; Z88.0 Allergy status to penicillin; Z87.891 Personal history of nicotine dependence; Z99.2 Dependence on renal dialysis; Z79.01 Long term (current) use of anticoagulants; Z79.1 Long term (current) use of non-steroidal anti-inflammatories (NSAID)